=== PATIENT | female | born 1965 | race Caucasian/White ===

== ENCOUNTER 2016-12-28 14:40 | Emergency (ER) | payer MEDICARE, MEDICAID ==
--- NOTE | 2016-12-28 15:36 | ED Physician Chart ---
Chief Complaint/HPI - Patient Information Date Seen:: 12/28/16 Time Seen:: 15:31 Chief Complaint:: uti? History of Present Illness:: pt sent from [place] for rt flank pain and dysuria and u urgency and foul smelling urine. pt has poor mental fxning and cant corroborate this hx. she denies any pain at this time. says she feels ok. denies fever. pt seems poor historian...she denies a hx of cva but appears to have obv l side chronic weakness. Allergies:: Allergies Allergy/AdvReac Type Severity Reaction Status Date / Time No Known Allergies Allergy Verified 12/28/16 14:54 Vitals:: Vital Signs - 8 hr 12/28/16 14:55 Temp 98.4 F HR 84 RR 19 BP 130/86 O2 Sat % 96 Historian:: Patient Review of Systems - Review of Systems General/Constitutional: No fever, No chills, No weight loss, No weakness, No diaphoresis, No edema, No loss of appetite Skin: No skin lesions, No rash, No bruising Head: No headache, No light-headedness Eyes: No loss of vision, No pain, No diplopia ENT: No earache, No nasal drainage, No sore throat, No tinnitus Neck: No neck pain, No swelling, No thyromegaly, No stiffness, No mass noted Cardio Vascular: No chest pain, No palpitations, No PND, No orthopnea, No edema Pulmonary: No SOB, No cough, No sputum, No wheezing GI: No nausea, No vomiting, No diarrhea, No pain, No melena, No hematochezia, No constipation, No hematemesis G/U: Dysuria, Frequency, No hematuria Musculoskeletal: No bone or joint pain, No back pain, No muscle pain Endocrine: No polyuria, No polydipsia Psychiatric: No prior psych history, No depression, No anxiety, No suicidal ideation Hematopoietic: No bruising, No lymphadenopathy Allergic/Immuno: No urticaria, No angioedema Neurological: No syncope, No focal symptoms, No weakness, No paresthesia, No headache, No seizure, No dizziness, No confusion, No vertigo Past Medical History - Past Medical History Past Medical History: DM, Asthma/COPD, CVA/TIA, Seizures, Dementia, Other ( encephalopathy,) Social History: Care Facility Psychiatricy History: Bipolar, Dementia Medication: Reviewed Family Medical History - Family Member Mother History Unknown: Yes Ethnicity: Unknown Living Status: Unknown Hx Family Cancer: (unknown) Hx Family Coronary Artery Disease: (UNKNOWN) Hx Family Congestive Heart Failure: (UNKNOWN) Hx Family Hypertension: (UNKNOWN) Hx Family Stroke: (UNKNOWN) Hx Family Diabetes: (UNKNOWN) Hx Family Seizures: (UNKNOWN) Hx Family Dementia: (UNKNOWN) Hx Family AIDS: (UNKNOWN) Hx Family COPD: (UNKNOWN) Hx Family Hepatitis: (UNKNOWN) Hx Family Tuberculosis: (UNKNOWN) Physical Exam - Physical Examination General/Constitutional: Awake, Well-developed, well-nourished, Alert, No distress, Non-toxic appearing Other Gen/Cons comments:: poor historian Head: Atraumatic Eyes: Lids, conjuctiva normal, PERRL, EOMI Skin: Nl inspection, No rash, No skin lesions, No ecchymosis, Well hydrated, No lymphadenopathy ENMT: External ears, nose nl, Nasal exam nl, Lips, teeth, gums nl Neck: Nontender, Full ROM w/o pain, No JVD, No nuchal rigidity, No bruit, No mass, No stridor Respiratory: Nl effort/Exclusion, Clear to Auscultation, No Wheeze/Rhonchi/Rales Cardio Vascular: RRR, No murmur, gallop, rubs, NL S1 S2 GI: No tenderness/rebounding/guarding, No organomegaly, No hernia, Normal BS's, Nondistended, No mass/bruits, No McBurney tenderness : No CVA tenderness Extremities: No tenderness or effusion, Full ROM, normal strength in all extremities, No edema, Normal digits & nails Neuro/Psych: Alert/oriented, DTR's symmetric, Normal sensory exam, Judgement/ insight normal, Mood normal, No focal deficits Other Neuro/Psych comments:: weak l side w contracture of l arm and dec mobility. Misc: normal gait, Normal back, No paraspinal tenderness Labs/Radiology/EKG Results - Lab Results Results: Laboratory Tests 12/28/16 12/28/16 12/28/16 15:47 15:47 15:47 WBC 12.5 H D RBC 4.50 Hgb 14.5 Hct 41.3 MCV 91.9 MCH 32.2 H MCHC Differential 35.0 RDW 12.0 Plt Count 305 MPV 6.8 Neutrophils % 69.8 Lymphocytes % 21.9 Monocytes % 6.0 Eosinophils % 2.0 Basophils % 0.3 Sodium 130 L Potassium 3.9 Chloride 99 Carbon Dioxide 28.2 Anion Gap 6.7 L BUN 11 Creatinine 0.4 L Est GFR ( Amer) > 60.0 Est GFR (Non-Af Amer) > 60.0 BUN/Creatinine Ratio 27.5 Glucose 134 H Whole Bld Lactic Acid 1.29 Calcium 9.5 Total Bilirubin 0.2 L AST 12 L ALT 17 Alkaline Phosphatase 115 H Total Protein 7.6 Albumin 4.2 Globulin 3.4 Albumin/Globulin Ratio 1.2 Urine Source Urine Color Urine Clarity Urine pH Ur Specific [place] Urine Protein Urine Glucose (UA) Urine Ketones Urine Blood Urine Nitrate Urine Bilirubin Urine Urobilinogen Ur Leukocyte Esterase Urine RBC Urine WBC Ur Epithelial Cells Amorphous Sediment Urine Bacteria Urine Test 12/28/16 12/28/16 18:50 18:50 WBC RBC Hgb Hct MCV MCH MCHC Differential RDW Plt Count MPV Neutrophils % Lymphocytes % Monocytes % Eosinophils % Basophils % Sodium Potassium Chloride Carbon Dioxide Anion Gap BUN Creatinine Est GFR ( Amer) Est GFR (Non-Af Amer) BUN/Creatinine Ratio Glucose Whole Bld Lactic Acid Calcium Total Bilirubin AST ALT Alkaline Phosphatase Total Protein Albumin Globulin Albumin/Globulin Ratio Urine Source CLEAN C Urine Color STRAW Urine Clarity HAZY Urine pH 7.0 Ur Specific [place] 1.020 Urine Protein 0.020 Urine Glucose (UA) NEGATIVE Urine Ketones NEGATIVE Urine Blood TRACE Urine Nitrate POSITIVE H Urine Bilirubin NEGATIVE Urine Urobilinogen 0.2 Ur Leukocyte Esterase TRACE H Urine RBC 0-2 Urine WBC 2-5 Ur Epithelial Cells FEW Amorphous Sediment FEW PHOSPHATES Urine Bacteria FEW Urine Test NEGATIVE ED Septic Shock - . Is Septic Shock (SBP<90, OR Lactate>4 mmol\L) present?: No - <6hrs of presentation: Vital Signs: Vital Signs - 8 hr 12/28/16 14:55 Temp 98.4 F HR 84 RR 19 BP 130/86 O2 Sat % 96 Reassessment (Disposition) - Reassessment Reassessment:: case dw dr ugarte..says send [place] back to [place] on cipro mild uti can be txd there...he will call orders to there. - Diagnosis Diagnosis:: uti - Aftercare/Follow up Instructions Aftercare/Follow-Up Instructions:: Counseled pt regarding lab results/diagnosis & need follow up - Patient Disposition Discharge/Transfer:: Snf Care - SNF Condition at Disposition:: Improved
[2016-12-28 15:55] LABS: % BASOPHILS 0.3 % (0.0-2.0); % LYMPHOCYTES 21.9 % (20.0-50.0); % NEUTROPHILS 69.8 % (40.0-80.0); HEMATOCRIT 41.3 % (35.0-45.0); HEMOGLOBIN 14.5 gm/dL (11.7-15.5); MEAN CELL VOLUME 91.9 fl (81-100); MEAN CORPUSCULAR HEMOGLOBIN 32.2 pg (27.0-31.0); MEAN PLATELET VOLUME 6.8 fl; NEUTROPHILE ABSOLUTE 8.8 Th/cmm (1.8-8.0); PLATELET COUNT 305 Th/cmm (150-400)
[2016-12-28 16:06] LABS: WHITE BLOOD COUNT 12.5 Th/cmm (4.8-10.8)
[2016-12-28 16:12] LABS: ALB/GLOB RATIO 1.2 (1.0-1.8); ALKALINE PHOSPHATASE 115 U/L (34-104); ANION GAP 6.7 (7.0-16.0); BILIRUBIN,TOTAL 0.2 mg/dL (0.3-1.0); BUN - UREA NITROGEN 11 mg/dL (7-25); BUN/CREATININE RATIO 27.5; CALCIUM SERUM 9.5 mg/dL (8.6-10.3); CARBON DIOXIDE 28.2 mEq/L (21.0-31.0); CHLORIDE 99 mEq/L (98-107); CREATININE - SERUM 0.4 mg/dL (0.6-1.2); GLUCOSE 134 mg/dL (70-105); POTASSIUM SERUM 3.9 mEq/L (3.5-5.1); SGOT 12 U/L (13-39); SGPT/ALT 17 U/L (7-52); SODIUM SERUM 130 mEq/L (136-145)
[2016-12-28 19:50] LABS: URINE BILIRUBIN NEGATIVE (NEGATIVE); URINE COLOR STRAW; URINE GLUCOSE (UA) NEGATIVE (NEGATIVE); URINE KETONE NEGATIVE (NEGATIVE)
[2016-12-28 19:51] LABS: URINE BLOOD TRACE (NEGATIVE); URINE UROBILINOGEN 0.2 E.U./dL (0.2 - 1.0)
[2016-12-28 19:52] LABS: URINE AMORPHOUS SEDIMENT FEW PHOSPHATES (NONE SEEN); URINE BACTERIA FEW /hpf (NONE SEEN); URINE EPITHELIAL CELLS FEW /lpf (FEW); URINE RBC 0-2 /hpf (0-5)
== END 2016-12-28 22:29 ==
LOC: ER 14:40
DX: N39.0 Urinary tract infection, site not specified (principal); E11.9 Type 2 diabetes mellitus without complications; J44.9 Chronic obstructive pulmonary disease, unspecified; J45.909 Unspecified asthma, uncomplicated; F31.9 Bipolar disorder, unspecified; Z86.73 Personal history of transient ischemic attack (TIA), and cerebral infarction without residual deficits
CPT/HCPCS: 36415-UA; 80053-TC; 80156-TC; 81001-TC; 81025-TC; 83605; 85025-TC; Z7502; Z7610

== ENCOUNTER 2017-07-18 15:09 | Inpatient (IN) | payer MEDICARE, MEDICAID ==
--- NOTE | 2017-07-18 15:17 | ED Physician Chart ---
ED Chief Complaint/HPI - Patient Information Date Seen:: 07/18/17 Time Seen:: 15:05 Chief Complaint:: Agitation History of Present Illness:: onset x one day or agitation and aggressive behavior; no report of SIs, trauma, H/As, neck pain, C/P, SOB, Abd. Pain, A/N/V/D/C, fever, chills, or urinary s/s Allergies:: Allergies Allergy/AdvReac Type Severity Reaction Status Date / Time No Known Allergies Allergy Verified 12/28/16 14:54 Historian:: Patient, EMS Review:: Nurse's Note Reviewed, EMS run form Reviewed ED Review of Systems - Review of Systems General/Constitutional: No fever, No chills, No weight loss, No weakness, No diaphoresis, No edema, No loss of appetite Skin: No skin lesions, No rash, No bruising Head: No headache, No light-headedness Eyes: No loss of vision, No pain, No diplopia ENT: No earache, No nasal drainage, No sore throat, No tinnitus Neck: No neck pain, No swelling, No thyromegaly, No stiffness, No mass noted Cardio Vascular: No chest pain, No palpitations, No PND, No orthopnea, No edema Pulmonary: No SOB, No cough, No sputum, No wheezing GI: No nausea, No vomiting, No diarrhea, No pain, No melena, No hematochezia, No constipation, No hematemesis G/U: No dysuria, No frequency, No hematuria Musculoskeletal: No bone or joint pain, No back pain, No muscle pain Endocrine: No polyuria, No polydipsia Psychiatric: Prior psych history, Depression, Anxiety, No suicidal ideation, No homicidal ideation, No auditory hallucination, No visual hallucination Hematopoietic: No bruising, No lymphadenopathy Allergic/Immuno: No urticaria, No angioedema Neurological: No syncope, Focal symptoms, Weakness, No paresthesia, No headache , Seizure, No dizziness, Confusion, No vertigo ED Past Medical History - Past Medical History Obtainable: Yes Past Medical History: HTN, DM, CVA/TIA, Dyslipidemia, Seizures, Dementia Family History: Diabetes Melitus, HTN Social History: Non Smoker, No Alcohol, No Drug Use, Single, Care Facility Surgical History: None Psychiatricy History: Depression, Bipolar, Dementia Medication: Reviewed Family Medical History - Family Member Mother History Unknown: Yes Ethnicity: Unknown Living Status: Unknown Hx Family Cancer: (unknown) Hx Family Coronary Artery Disease: (UNKNOWN) Hx Family Congestive Heart Failure: (UNKNOWN) Hx Family Hypertension: (UNKNOWN) Hx Family Stroke: (UNKNOWN) Hx Family Diabetes: (UNKNOWN) Hx Family Seizures: (UNKNOWN) Hx Family Dementia: (UNKNOWN) Hx Family AIDS: (UNKNOWN) Hx Family COPD: (UNKNOWN) Hx Family Hepatitis: (UNKNOWN) Hx Family Tuberculosis: (UNKNOWN) ED Physical Exam - Physical Examination General/Constitutional: Awake, Well-developed, well-nourished, Alert, No distress, GCS 15, Non-toxic appearing, Ambulatory Head: Atraumatic Eyes: Lids, conjuctiva normal, PERRL, EOMI Skin: Nl inspection, No rash, No skin lesions, No ecchymosis, Well hydrated, No lymphadenopathy ENMT: External ears, nose nl, Nasal exam nl, Lips, teeth, gums nl Neck: Nontender, Full ROM w/o pain, No JVD, No nuchal rigidity, No bruit, No mass, No stridor Respiratory: Nl effort/Exclusion, Clear to Auscultation, No Wheeze/Rhonchi/Rales Cardio Vascular: RRR, No murmur, gallop, rubs, NL S1 S2, Carotid/Femoral/Distal pulses equal bilaterally GI: No tenderness/rebounding/guarding, No organomegaly, No hernia, Normal BS's, Nondistended, No mass/bruits, No McBurney tenderness : No CVA tenderness Extremities: No tenderness or effusion, Full ROM, normal strength in all extremities, No edema, Normal digits & nails Neuro/Psych: Alert/oriented, DTR's symmetric, Normal sensory exam, Normal motor strength, Judgement/insight normal, Mood normal, Normal gait Other Neuro/Psych comments:: LUE and LLE decreased motor and sensory functions 2ndary to old CVA; + Psychomotor Agitation; no SIs Misc: Normal back, No paraspinal tenderness ED Labs/Radiology/EKG Results - Lab Results Comments:: U/A: + Pyuria - EKG Interpretations EKG Time:: 15:32 Rate & Rhythm: 85; NSR Comments:: LAD; non-specific st-t changes ED Septic Shock - . Is Septic Shock (SBP<90, OR Lactate>4 mmol\L) present?: No ED Reassessment (Disposition) - Reassessment Reassessment Condition:: Improved - Diagnosis Diagnosis:: UTI; Agitation; Bipolar Disorder; Manic Depression; Old CVA - Aftercare/Follow up Instructions Aftercare/Follow-Up Instructions:: Counseled pt regarding lab results/diagnosis & need follow up, Counseled pt & family regarding lab results/diagnosis & need follow up - Patient Disposition Discharge/Transfer:: Acute Care w/in this hosp Admitted to:: [facility] Condition at Disposition:: Stable, Improved
[2017-07-18 15:50] LABS: % BASOPHILS 0.4 % (0.0-2.0); % EOSINOPHILS 1.9 % (0.0-5.0); % LYMPHOCYTES 28.1 % (20.0-50.0); % MONOCYTES 6.4 % (2.0-10.0); % NEUTROPHILS 63.2 % (40.0-80.0); EOSINOPHILE ABSOLUTE 0.2 Th/cmm (0.1-0.4); HEMATOCRIT 41.6 % (41.0-60); HEMOGLOBIN 13.9 gm/dL (12-16); LYMPHOCYTE ABSOLUTE 2.4 Th/cmm (1.5-3.0); MEAN CORPUSCULAR HEMOGLOBIN 31.1 pg (27.0-31.0); MEAN CORPUSCULAR HGB CONC 33.4 pg (28.0-36.0); MEAN PLATELET VOLUME 6.5 fl; MONOCYTE ABSOLUTE 0.5 Th/cmm (0.3-1.0); NEUTROPHILE ABSOLUTE 5.3 Th/cmm (1.8-8.0); PLATELET COUNT 344 Th/cmm (150-400); RED BLOOD COUNT 4.47 Mil/cmm (3.80-5.10); RED CELL DISTRIBUTION WIDTH 11.9 % (11.5-20.0)
[2017-07-18 15:58] LABS: WHITE BLOOD COUNT 8.4 Th/cmm (4.8-10.8)
[2017-07-18 16:07] LABS: ACETAMINOPHEN < 10.0 ug/mL (10.0-30.0); ALB/GLOB RATIO 1.4 (1.0-1.8); ALBUMIN 4.1 gm/dL (3.7-5.3); ALKALINE PHOSPHATASE 101 U/L (34-104); BILIRUBIN,TOTAL 0.2 mg/dL (0.3-1.0); BUN - UREA NITROGEN 12 mg/dL (7-25); CALCIUM SERUM 9.3 mg/dL (8.6-10.3); CARBON DIOXIDE 31.7 mEq/L (21.0-31.0); CHLORIDE 96 mEq/L (98-107); CHOLESTEROL 163 mg/dL (<200); CREATININE - SERUM 0.4 mg/dL (0.6-1.2); GFR AFRICAN-AMERICAN > 60.0 ml/min (>90); GFR NON AFRICAN-AMERICAN > 60.0 ml/min; GLUCOSE 118 mg/dL (70-105); HDL -HIGH DENSITY LIPOPROTEIN 47 mg/dL (23-92); POTASSIUM SERUM 3.7 mEq/L (3.5-5.1); SALICYLATES (ASPIRIN) < 25.0 mg/L (30.0-100.0); SGOT 14 U/L (13-39); SGPT/ALT 18 U/L (7-52); SODIUM SERUM 131 mEq/L (136-145); TOTAL PROTEIN,SERUM 7.1 gm/dL (6.0-8.3); TRIGLYCERIDES 150 mg/dL (<150)
[2017-07-18 16:07] LABS: URINE MICROSCOPIC INDICATED? YES; URINE SOURCE CLEAN C
[2017-07-18 16:09] LABS: URINE BILIRUBIN NEGATIVE (NEGATIVE); URINE BLOOD TRACE (NEGATIVE); URINE GLUCOSE (UA) NEGATIVE (NEGATIVE); URINE KETONE NEGATIVE (NEGATIVE); URINE LEUKOCYTE ESTERASE SMALL (NEGATIVE); URINE NITRATE POSITIVE (NEGATIVE); URINE PH 7.5 (4.6 - 8.0); URINE PROTEIN TRACE mg/dL (NEGATIVE); URINE UROBILINOGEN 0.2 E.U./dL (0.2 - 1.0)
[2017-07-18 16:13] LABS: URINE CLARITY HAZY (CLEAR); URINE COLOR YELLOW
[2017-07-18 16:15] LABS: URINE BACTERIA MANY /hpf (NONE SEEN); URINE EPITHELIAL CELLS FEW /lpf (FEW); URINE WBC 25-50 /hpf (0-5)
[2017-07-18 16:18] LABS: AMPHETAMINE URINE NEGATIVE (NEGATIVE); BARBITURATES URINE NEGATIVE (NEGATIVE); BENZODIAZEPINES QUAL URINE NEGATIVE (NEGATIVE); CANNABINOID THC NEGATIVE (NEGATIVE); COCAINE METABOLITE QUAL URINE NEGATIVE (NEGATIVE); METHADONE URINE NEGATIVE (NEGATIVE); METHAMPHETAMINES QUAL URINE NEGATIVE (NEGATIVE); OPIATES (MORPHINE) QUAL. URINE NEGATIVE (NEGATIVE); PHENCYCLIDINE (PCP) URINE NEGATIVE (NEGATIVE); TRICYCLICS (TCA) QUAL. URINE NEGATIVE (NEGATIVE)
[2017-07-18] MEDS ORDERED: GLUCAGON HCl 1 MG KIT SUBQ PRN (20:04)
[2017-07-18] MEDS: Fish Oil 1,000 MG SGL PO SCH (20:56)
[2017-07-18 23:32] VITALS: BP 115/68
[2017-07-19] MEDS ORDERED: INSULIN ASPART SLIDING SCALE 100 UNITS/ML UNIT SUBQ SCH ×2 (07:30)
[2017-07-19] MEDS: Dextromethorphan/Quinidine 20mg/10mg Cap PO SCH ×2 (08:28→16:39)
[2017-07-19] MEDS: Fish Oil 1,000 MG SGL PO SCH ×3 (08:28→22:13)
[2017-07-19] MEDS: Benztropine 1 MG TAB PO SCH ×2 (08:28→16:40)
[2017-07-19] MEDS: Aspirin 81mg Chewable Tab PO SCH (08:28)
[2017-07-19] MEDS ORDERED: GLUCAGON HCl 1 MG KIT IM PRN (09:16)
[2017-07-19] MEDS ORDERED: Magnesium Hydroxide (MOM) 30 mL UDC PO PRN (09:16)
[2017-07-19] MEDS ORDERED: Maalox 30 mL Cup PO PRN (09:16)
[2017-07-19] MEDS ORDERED: Dextromethorphan/Quinidine 20mg/10mg Cap PO SCH (09:30)
[2017-07-19] MEDS ORDERED: Aspirin 81mg Chewable Tab PO SCH (09:30)
[2017-07-19] MEDS ORDERED: Benztropine 1 MG TAB PO SCH (09:30)
[2017-07-19] MEDS ORDERED: UBIDECARENONE 200 MG PO SCH (09:30)
[2017-07-19] MEDS ORDERED: Fish Oil 1,000 MG SGL PO SCH (09:30)
[2017-07-19 10:00] LABS: A1C % 6.1 % (4.0-6.0)
[2017-07-19] MEDS: Pancrelipase Cap ECC PO SCH ×2 (14:03→16:42)
--- NOTE | 2017-07-19 14:48 | Psychosocial Evaluation ---
DATE OF SERVICE: 07/18/2017 IDENTIFYING DATA: The patient is a 51-year-old woman, resident of [facility]. Information obtained by directly interviewing the patient as well as reviewing admission papers and they are reliable. JUSTIFICATION OF HOSPITALIZATION: The patient is admitted here on a voluntary basis in view of her acute psychosis. CHIEF COMPLAINT: "I don't know." HISTORY OF PRESENT ILLNESS: This seems to be one of multiple psychiatric hospitalizations for this patient who was last hospitalized here in 2013. The patient has been diagnosed to have bipolar disorder and is being followed up by Dr. Troncoso on an outpatient basis. On the day of the hospitalization, the patient has been getting easily agitated and is not able to contract for safety. The patient is also reported to be confused and agitated and responding to internal stimuli and hence the patient has been referred over here for stabilization. PAST PSYCHIATRIC HISTORY: Please refer to the above. The patient was hospitalized and was treated for depression and dementia in the past. MEDICAL HISTORY: requested to be done by Dr. Chappell. The patient has a history of seizure disorder and left-sided CVA. SUBSTANCE ABUSE HISTORY: None. PHYSICAL OR SEXUAL ABUSE HISTORY: None. SOCIAL HISTORY: The patient is a resident of the [facility]. MENTAL STATUS EXAMINATION: The patient is a 51-year-old woman looking her stated age, superficially cooperative. Eye contact is poor. Mood is noted to be irritable. Affect is constricted. The patient's coping skills are noted to be poor at this time. Insight and judgment are also noted to be very much impaired. The patient has been screaming and yelling and articulation problems are noted. At the time of the hospitalization. The patient has been on benztropine 1 mg b.i.d., carbamazepine 200 mg 4 times a day and the patient is also receiving the Klonopin 1 mg 3 times a day and the patient has been getting the haloperidol 10 mg twice a day. With these medications. The patient for now, is going to be observed and once stabilized, the patient is going to be discharged back to the facility for stabilization. JOB# [id number]
[2017-07-19] MEDS ORDERED: Non-Formulary Item 1 EA (Melatonin [Melatonin] 6 MG) PO SCH (21:00)
[2017-07-20] MEDS: INSULIN ASPART SLIDING SCALE 100 UNITS/ML UNIT SUBQ SCH (07:12)
[2017-07-20] MEDS: Aspirin 81mg Chewable Tab PO SCH (08:20)
[2017-07-20] MEDS: Benztropine 1 MG TAB PO SCH ×2 (08:20→16:41)
[2017-07-20] MEDS: Dextromethorphan/Quinidine 20mg/10mg Cap PO SCH ×2 (08:20→16:40)
[2017-07-20] MEDS: Fish Oil 1,000 MG SGL PO SCH ×3 (08:22→20:43)
[2017-07-20] MEDS: Pancrelipase Cap ECC PO SCH ×3 (08:23→16:40)
--- NOTE | 2017-07-20 10:55 | Progress Notes ---
DATE: 07/20/2017 PSYCHIATRIC PROGRESS NOTE SUBJECTIVE: Staff was spoken to. The patient is interviewed. Mood is noted to be irritable. Affect is constricted. The patient is isolative and withdrawn. Coping skills are noted to be poor at this time. The patient is still depressed and has been having difficult time to cope with the stress. ASSESSMENT: The patient is still depressed. PLAN: To continue the patient with the supportive therapy, encouraged the patient to verbalize the concerns rather than to act out. [facility]# [id number]
--- NOTE | 2017-07-20 11:17 | History & Physical ---
ADMIT DATE: 07/19/2017 REFERRING PHYSICIAN: Leana Troncoso M.D REASON FOR CONSULT: Medical management, history of diabetes, pancreatic insufficiency, seizure disorder, UTI, and hyperlipidemia. HISTORY OF PRESENT ILLNESS: The patient is a 51-year-old female who was transferred from a detention facility secondary to agitation and psych decompensation. She has a history of CVA with left-sided hemiparesis and left-sided upper extremity contractions, seizure disorder, depression, anxiety, type 2 diabetes, and dyslipidemia who again was transferred to this facility given psych decompensation. She is an extremely poor historian, but is awake and able to tell me that she has had no major symptomatology such as fever, chills, cough, nausea, vomiting. PAST MEDICAL HISTORY: As noted above. PAST SURGICAL HISTORY: No noted surgeries, but there is scar in the mid anterior neck area. SOCIAL HISTORY: Denies any tobacco, ETOH or illicit drug usage. She lives at a detention facility. FAMILY HISTORY: Likely noncontributory. ALLERGIES: NKDA. OUTPATIENT MEDICATIONS: Maalox p.r.n., pancreatic enzymes t.i.d., aspirin 81 every day, benztropine 1 mg b.i.d., carbamazepine 200mg q.i.d. and clonazepam 1mg t.i.d., docusate sodium 100 b.i.d., fish oil every day, glipizide 5 every day with meals, insulin sliding scale, Haldol 10 b.i.d., insulin sliding scale per protocol, simvastatin 20 at bedtime. REVIEW OF SYSTEMS: A good review of systems was not able to be done given patient's condition. PHYSICAL EXAMINATION: VITAL SIGNS: Temperature 98.6, pulse 62, respirations 18, BP 1114/72, satting 96% on room air. GENERAL: Well-developed, well-nourished female, currently lying in bed, lethargic appearing and slow to answer questions. HEAD AND NECK: Normocephalic, atraumatic. Pupils are reactive to light. Extraocular movements are intact. Oropharynx is moist and clear. NECK: There is no JVD or LAD. There is a well-healed scar on the mid neck area. CARDIOVASCULAR: Regular rate and rhythm with distant sounds. LUNGS: Decreased at the bases, but overall clear to auscultation. ABDOMEN: Soft, supple, nontender, nondistended, normoactive bowel sounds. EXTREMITIES: On lower extremity, there is trace pedal edema. NEUROLOGIC: Difficult to assess. The cranial nerves 2-12 are within normal limits. LABORATORY DATA: White count 8.4, H and H 13/41 with a platelet count 344. Sodium 131, potassium 3.7, chloride 96, CO2 of 31, BUN 12, creatinine 0.4, glucose 118. LFTs were essentially within normal limits. UA was positive for nitrites with small leukocyte esterase, 25-50 wbc's. Urine tox was essentially within normal limits. DIAGNOSTIC STUDIES: EKG shows normal sinus rhythm at a rate of 85. IMPRESSION AND PLAN: 1. Acute psych decompensation. 2. History of CVA with left-sided hemiparesis 3. History of type 2 diabetes. 4. History of seizure disorder. 5. UTI. 6. History of pancreatic insufficiency. 7. History of dyslipidemia. PLAN: The patient has been [facility] to [facility] for further management and care. She will be kept on all her medications as schedule. We will follow urine cultures and sensitivities in the interim. She has received 1 gram of Rocephin at the ER and she will be placed on ciprofloxacin 250 b.i.d. x7 days. JOB# [id number] CEDRIC
[2017-07-20] MEDS ORDERED: Probiotic Screen MC PRN (14:30)
[2017-07-21] MEDS: INSULIN ASPART SLIDING SCALE 100 UNITS/ML UNIT SUBQ SCH (06:52)
[2017-07-21] MEDS: Fish Oil 1,000 MG SGL PO SCH ×3 (08:08→21:01)
[2017-07-21] MEDS: Dextromethorphan/Quinidine 20mg/10mg Cap PO SCH ×2 (08:08→17:25)
[2017-07-21] MEDS: Aspirin 81mg Chewable Tab PO SCH (08:08)
[2017-07-21] MEDS: Lactobacillus Rhamnosus 10 Billion CFU Capsule PO SCH (08:08)
[2017-07-21] MEDS: Benztropine 1 MG TAB PO SCH ×2 (08:08→17:25)
[2017-07-21] MEDS: Pancrelipase Cap ECC PO SCH ×3 (08:10→17:25)
--- NOTE | 2017-07-21 22:11 | Progress Notes ---
DATE: 07/21/2017 PSYCHIATRIC PROGRESS NOTE SUBJECTIVE: Staff was spoken to. Patient is interviewed. Mood is irritable. Affect is constricted. Coping skills are noted to be still poor. Sleep and appetite are also noted to be very poor. Mood swings are noted. The patient is screaming and yelling at times, but needs to be redirected. The patient is currently on haloperidol 10 mg twice a day and the patient is too drowsy and hence we decided to change the haloperidol to 5 mg twice a day and follow the patient with the supportive therapy. ASSESSMENT: The patient is still psychotic and impulsive. PLAN: To continue the patient with supportive therapy. I encouraged the patient to verbalize the concerns rather than to act out. [facility]# [id number]
[2017-07-22] MEDS: INSULIN ASPART SLIDING SCALE 100 UNITS/ML UNIT SUBQ SCH (06:53)
[2017-07-22] MEDS: Pancrelipase Cap ECC PO SCH ×3 (09:00→17:24)
[2017-07-22] MEDS: Lactobacillus Rhamnosus 10 Billion CFU Capsule PO SCH (10:00)
[2017-07-22] MEDS: Benztropine 1 MG TAB PO SCH ×2 (10:00→17:22)
[2017-07-22] MEDS: Aspirin 81mg Chewable Tab PO SCH (10:00)
[2017-07-22] MEDS: Dextromethorphan/Quinidine 20mg/10mg Cap PO SCH ×2 (10:00→17:22)
[2017-07-22] MEDS: Fish Oil 1,000 MG SGL PO SCH ×3 (10:00→21:02)
--- NOTE | 2017-07-22 18:42 | Progress Notes ---
DATE: 07/22/2017 PSYCHIATRIC PROGRESS NOTE SUBJECTIVE: Staff was spoken to. The patient is interviewed. Mood is noted to be irritable. Affect is constricted. Coping skills are noted to be very poor. Insight and judgment are also noted to be very poor. The patient is isolative and withdrawn. Since the patient has been too drowsy, the patient's haloperidol has been discontinued at 10 mg twice a day and the patient is only on 5 mg twice a day. The patient has been able to tolerate the medications. No side effects to the medications are noted. ASSESSMENT: The patient is still having difficult time to cope with the stress. PLAN: To continue the patient with the supportive therapy and encouraged the patient to verbalize the concerns rather than to act out. The patient's Klonopin is going to be changed to 0.5 mg 3 times a day because the patient has been presenting with too much of sedation. JOB# [id number]
[2017-07-23] MEDS: INSULIN ASPART SLIDING SCALE 100 UNITS/ML UNIT SUBQ SCH (07:48)
[2017-07-23] MEDS: Dextromethorphan/Quinidine 20mg/10mg Cap PO SCH ×2 (09:12→17:42)
[2017-07-23] MEDS: Benztropine 1 MG TAB PO SCH ×2 (09:12→17:42)
[2017-07-23] MEDS: Fish Oil 1,000 MG SGL PO SCH ×3 (09:12→22:43)
[2017-07-23] MEDS: Pancrelipase Cap ECC PO SCH ×3 (09:12→17:46)
[2017-07-23] MEDS: Aspirin 81mg Chewable Tab PO SCH (09:13)
[2017-07-23] MEDS: Lactobacillus Rhamnosus 10 Billion CFU Capsule PO SCH (09:14)
--- NOTE | 2017-07-23 19:43 | Progress Notes ---
DATE: 07/23/2017 SUBJECTIVE: Staff was spoken to. The patient is interviewed. Mood is noted to be depressed. Affect is constricted. The patient has been isolative and withdrawn. The patient is still responding to internal stimuli. Insight and judgment at this time are noted to be still impaired. Impulse control is poor. Coping skills are noted to very poor. No side effects to the medications are noted. The patient has been closely monitored at this time. The patient is having difficult time to cope with the stress. ASSESSMENT: The patient is still grossly psychotic. PLAN: To continue the patient with the supportive therapy, encouraged the patient to verbalize the concerns rather than to act out. Please note that the patient is not ready to be discharged to a lower level of care yet. JOB# [id number]
--- NOTE | 2017-07-23 19:43 | Progress Notes ---
DATE: 07/23/2017 PSYCHIATRIC PROGRESS NOTE SUBJECTIVE: Staff was spoken to. The patient is interviewed. Mood is noted to be less irritable. Affect is constricted. The patient's coping skills are noted to be still poor. The patient has been currently on 5 mg twice of the haloperidol. Plan to decrease the dose to only once at bedtime and discontinue the patient's twice a day of the Haldol because the patient has been very drowsy even with 5 mg twice a day. The patient was on 10 mg, so we are trying to cut down on the dose on the medication. ASSESSMENT: The patient is still psychotic. PLAN: To continue the patient with the supportive therapy and followup. [facility]# [id number]
[2017-07-24] MEDS: INSULIN ASPART SLIDING SCALE 100 UNITS/ML UNIT SUBQ SCH (07:03)
[2017-07-24] MEDS: Dextromethorphan/Quinidine 20mg/10mg Cap PO SCH ×2 (08:14→18:31)
[2017-07-24] MEDS: Pancrelipase Cap ECC PO SCH ×3 (08:14→18:31)
[2017-07-24] MEDS: Aspirin 81mg Chewable Tab PO SCH (08:14)
[2017-07-24] MEDS: Lactobacillus Rhamnosus 10 Billion CFU Capsule PO SCH (08:14)
[2017-07-24] MEDS: Fish Oil 1,000 MG SGL PO SCH ×3 (08:15→20:45)
[2017-07-24] MEDS: Benztropine 1 MG TAB PO SCH ×2 (08:15→18:32)
--- NOTE | 2017-07-25 03:06 | Progress Notes ---
DATE: 07/24/2017 SUBJECTIVE: Staff was spoken to. Patient is interviewed. Mood is irritable. Affect is constricted. The patient has been screaming and yelling and the patient has to be given Ativan 1 mg IM. Coping skills at this time are noted to be very poor. The patient has been currently on 5 mg of the Haldol at bedtime. No side effects to the medications are noted. ASSESSMENT: The patient is also on carbamazepine 200 mg 4 times a day. Plan to request the patient to verbalize the concerns rather than to act out. The patient is going to be followed up with her level on the Tegretol. JOB# [id number]
[2017-07-25] MEDS: INSULIN ASPART SLIDING SCALE 100 UNITS/ML UNIT SUBQ SCH (06:38)
[2017-07-25] MEDS: Pancrelipase Cap ECC PO SCH ×3 (08:53→18:15)
[2017-07-25] MEDS: Fish Oil 1,000 MG SGL PO SCH ×3 (08:53→21:26)
[2017-07-25] MEDS: Dextromethorphan/Quinidine 20mg/10mg Cap PO SCH ×2 (08:53→18:06)
[2017-07-25] MEDS: Aspirin 81mg Chewable Tab PO SCH (08:53)
[2017-07-25] MEDS: Benztropine 1 MG TAB PO SCH ×2 (08:53→18:06)
[2017-07-25] MEDS: Lactobacillus Rhamnosus 10 Billion CFU Capsule PO SCH (08:53)
[2017-07-25] MEDS ORDERED: Haloperidol Lactate 5 mg/mL 1mL Vial IM ONE (15:09)
[2017-07-26] MEDS: INSULIN ASPART SLIDING SCALE 100 UNITS/ML UNIT SUBQ SCH (06:50)
--- NOTE | 2017-07-26 07:01 | Progress Notes ---
DATE: 07/25/2017 PSYCHIATRIC PROGRESS NOTE SUBJECTIVE: Staff was spoken to. The patient is interviewed. Mood is noted to be irritable. Affect is constricted. The patient has been going off on a tangent. The patient could not be contained. The patient has to be given an emergency dose of medications. Coping skills at this time are noted to be very poor. ASSESSMENT: The patient is still psychotic. PLAN: To continue the patient with the supportive therapy. I encouraged the patient to verbalize the concerns rather than to act out. JOB# [id number]
[2017-07-26] MEDS: Benztropine 1 MG TAB PO SCH ×2 (08:56→16:22)
[2017-07-26] MEDS: Fish Oil 1,000 MG SGL PO SCH ×3 (08:57→21:50)
[2017-07-26] MEDS: Dextromethorphan/Quinidine 20mg/10mg Cap PO SCH ×2 (08:57→16:22)
[2017-07-26] MEDS: Aspirin 81mg Chewable Tab PO SCH (08:57)
[2017-07-26] MEDS: Lactobacillus Rhamnosus 10 Billion CFU Capsule PO SCH (08:57)
[2017-07-26] MEDS: Pancrelipase Cap ECC PO SCH ×3 (08:58→16:22)
--- NOTE | 2017-07-26 23:25 | Progress Notes ---
DATE: 07/26/2017 Staff was spoken to. The patient is interviewed. Mood is noted to be irritable. Affect is constricted. The patient is screaming and yelling and she does not get her way. The patient has been currently on 5 mg of Haldol at bedtime and has been able to tolerate the medications. No side effects to medications are noted. ASSESSMENT: The patient is still psychotic and impulsive. PLAN: To continue the patient with the current medications and followup. JOB# [id number]
[2017-07-27] MEDS: INSULIN ASPART SLIDING SCALE 100 UNITS/ML UNIT SUBQ SCH (07:07)
[2017-07-27] MEDS: Pancrelipase Cap ECC PO SCH ×2 (09:58→13:00)
[2017-07-27] MEDS: Benztropine 1 MG TAB PO SCH ×2 (09:58→18:03)
[2017-07-27] MEDS: Aspirin 81mg Chewable Tab PO SCH (09:58)
[2017-07-27] MEDS: Fish Oil 1,000 MG SGL PO SCH ×3 (09:58→21:43)
[2017-07-27] MEDS: Dextromethorphan/Quinidine 20mg/10mg Cap PO SCH ×2 (09:58→18:04)
[2017-07-27] MEDS: Lactobacillus Rhamnosus 10 Billion CFU Capsule PO SCH (09:59)
[2017-07-27] MEDS: PANCREAZE PO SCH (18:15)
--- NOTE | 2017-07-28 00:56 | Progress Notes ---
DATE: 07/27/2017 SUBJECTIVE: Staff was spoken to. The patient is interviewed. Mood is noted to be irritable. Affect is constricted. The patient's coping skills are noted to be very poor. Sleep and appetite also noted to be very poor. No side effects to the medications are noted. The patient has been having difficult time to cope with the stress. The patient is currently on Haldol and has been able to tolerate the medications. No side effects to the medications are noted. ASSESSMENT: The patient is still psychotic. PLAN: Continue the patient with the current medications and follow up. [facility]# [id number]
[2017-07-28] MEDS: INSULIN ASPART SLIDING SCALE 100 UNITS/ML UNIT SUBQ SCH (07:00)
[2017-07-28] MEDS: PANCREAZE PO SCH ×3 (09:00→17:39)
[2017-07-28] MEDS: Aspirin 81mg Chewable Tab PO SCH (09:54)
[2017-07-28] MEDS: Lactobacillus Rhamnosus 10 Billion CFU Capsule PO SCH (09:54)
[2017-07-28] MEDS: Dextromethorphan/Quinidine 20mg/10mg Cap PO SCH ×2 (09:54→17:38)
[2017-07-28] MEDS: Fish Oil 1,000 MG SGL PO SCH ×3 (09:55→21:08)
[2017-07-28] MEDS: Benztropine 1 MG TAB PO SCH ×2 (09:55→17:38)
--- NOTE | 2017-07-29 02:05 | Progress Notes ---
DATE: 07/28/2017 PSYCHIATRIC PROGRESS NOTE SUBJECTIVE: Staff was spoken to. The patient is interviewed. Mood is noted to be irritable. The patient has been reported to be screaming and yelling earlier this morning, but today, this afternoon, the patient has been doing okay. The patient is currently on 5 mg of the Haldol at night time and has been able to tolerate the medication. No side effects to the medications are noted. ASSESSMENT: The patient is still psychotic and mood swings are coming under control. PLAN: To continue the patient with the supportive therapy, encouraged the patient to verbalize the concerns rather than to act out. JOB# [id number]
[2017-07-29] MEDS: INSULIN ASPART SLIDING SCALE 100 UNITS/ML UNIT SUBQ SCH (06:40)
[2017-07-29] MEDS: Dextromethorphan/Quinidine 20mg/10mg Cap PO SCH ×2 (09:15→16:31)
[2017-07-29] MEDS: Lactobacillus Rhamnosus 10 Billion CFU Capsule PO SCH (09:15)
[2017-07-29] MEDS: Benztropine 1 MG TAB PO SCH ×2 (09:15→16:31)
[2017-07-29] MEDS: Aspirin 81mg Chewable Tab PO SCH (09:16)
[2017-07-29] MEDS: Fish Oil 1,000 MG SGL PO SCH ×3 (09:16→21:24)
[2017-07-29] MEDS: PANCREAZE PO SCH ×3 (09:20→16:34)
--- NOTE | 2017-07-29 14:08 | Progress Notes ---
DATE: 07/29/2017 SUBJECTIVE: Staff was spoken to. The patient is interviewed. Mood is noted to be anxious and depressed. Affect is constricted. Insight and judgment are noted to be improving. Impulse control seems to be fair. The patient is not yelling or screaming like before. No side effects to the medications are noted. The patient has been able to verbalize the concerns rather than to act out. The patient is currently on the carbamazepine 200 mg 4 times a day and the patient is also receiving Haldol 5 mg at bedtime and has been able to tolerate. ASSESSMENT: The patient's mood swings are coming under control. PLAN: To continue the patient with the supportive therapy, encouraged the patient to verbalize the concerns rather than to act out. JOB# [id number]
[2017-07-30] MEDS: INSULIN ASPART SLIDING SCALE 100 UNITS/ML UNIT SUBQ SCH (06:53)
[2017-07-30] MEDS: Aspirin 81mg Chewable Tab PO SCH (09:19)
[2017-07-30] MEDS: Lactobacillus Rhamnosus 10 Billion CFU Capsule PO SCH (09:19)
[2017-07-30] MEDS: PANCREAZE PO SCH ×3 (09:19→16:39)
[2017-07-30] MEDS: Fish Oil 1,000 MG SGL PO SCH ×2 (09:20→13:16)
[2017-07-30] MEDS: Benztropine 1 MG TAB PO SCH ×2 (09:20→16:37)
[2017-07-30] MEDS: Dextromethorphan/Quinidine 20mg/10mg Cap PO SCH ×2 (09:20→16:38)
--- NOTE | 2017-07-30 19:26 | Progress Notes ---
DATE: 07/30/2017 SUBJECTIVE: Staff was spoken to. The patient is interviewed. Mood is noted to be less irritable. Affect is appropriate. Coping skills at this time are noted to be fair. No side effects to the medications are noted. The patient has been less anxious at this time. The patient's psychosis is resolving. Impulse control is also noted to be improving, but the patient is stating that the medication is making her too drowsy and hence the Klonopin has been changed to 0.5 mg t.i.d. p.r.n. The patient is also getting the Haldol 5 mg at bedtime and has been able to tolerate. Psychosis is resolving. ASSESSMENT: The patient is stabilizing. PLAN: To continue the patient with the supportive therapy. I encouraged the patient to verbalize the concerns rather than to act out. JOB# [id number]
[2017-07-31] MEDS: Dextromethorphan/Quinidine 20mg/10mg Cap PO SCH ×2 (09:47→17:09)
[2017-07-31] MEDS: Aspirin 81mg Chewable Tab PO SCH (09:47)
[2017-07-31] MEDS: Lactobacillus Rhamnosus 10 Billion CFU Capsule PO SCH (09:47)
[2017-07-31] MEDS: Benztropine 1 MG TAB PO SCH ×2 (09:47→17:10)
[2017-07-31] MEDS: Fish Oil 1,000 MG SGL PO SCH ×3 (09:48→21:03)
[2017-07-31] MEDS: INSULIN ASPART SLIDING SCALE 100 UNITS/ML UNIT SUBQ SCH (09:48)
[2017-07-31] MEDS: PANCREAZE PO SCH ×3 (09:49→17:11)
--- NOTE | 2017-07-31 19:03 | Progress Notes ---
DATE: 07/31/2017 SUBJECTIVE: Staff was spoken to. The patient is interviewed. Mood is noted to be less irritable. Affect is appropriate. The patient's coping skills are noted to be improving; however, the patient has paranoia and gets into agitation whenever she does not get her way. No side effects to the medications are noted so far. The patient is currently on carbamazepine 200 mg 4 times a day and benztropine 1 mg twice a day. Also, the patient is getting the Klonopin on p.r.n. doses of medication. The patient is going to be closely monitored and encouraged to participate in the groups and verbalize the concerns rather than to act out. ASSESSMENT: The patient's case management assistant is going to be kept in the loop and the discharge plan is going to be discussed. JOB# [id number]
[2017-08-01] MEDS: INSULIN ASPART SLIDING SCALE 100 UNITS/ML UNIT SUBQ SCH (06:31)
[2017-08-01] MEDS: PANCREAZE PO SCH ×3 (08:30→16:46)
[2017-08-01] MEDS: Dextromethorphan/Quinidine 20mg/10mg Cap PO SCH ×2 (09:39→16:44)
[2017-08-01] MEDS: Fish Oil 1,000 MG SGL PO SCH ×3 (09:39→20:23)
[2017-08-01] MEDS: Lactobacillus Rhamnosus 10 Billion CFU Capsule PO SCH (09:39)
[2017-08-01] MEDS: Benztropine 1 MG TAB PO SCH ×2 (09:40→16:45)
[2017-08-01] MEDS: Aspirin 81mg Chewable Tab PO SCH (09:40)
--- NOTE | 2017-08-01 16:02 | Progress Notes ---
DATE: 08/01/2017 SUBJECTIVE: Staff was spoken to. The patient is interviewed. Mood is noted to be irritable. Affect is constricted. Impulsivity is still contained is a problem. The patient has been on the carbamazepine, the level is noted to be 9.0 and the patient is being closely monitored at this time for any adverse effects. The patient is also having the irritability and anger. The patient is maintained on Haldol 5 mg at bedtime. ASSESSMENT: The patient is still impulsive. PLAN: To continue the patient with the supportive therapy, encouraged the patient to verbalize the concerns rather than to act out. JOB# [id number]
[2017-08-02] MEDS: INSULIN ASPART SLIDING SCALE 100 UNITS/ML UNIT SUBQ SCH (06:32)
[2017-08-02] MEDS: PANCREAZE PO SCH ×3 (09:00→17:14)
[2017-08-02] MEDS: Benztropine 1 MG TAB PO SCH ×2 (10:00→17:13)
[2017-08-02] MEDS: Lactobacillus Rhamnosus 10 Billion CFU Capsule PO SCH (10:00)
[2017-08-02] MEDS: Dextromethorphan/Quinidine 20mg/10mg Cap PO SCH ×2 (10:00→17:14)
[2017-08-02] MEDS: Aspirin 81mg Chewable Tab PO SCH (10:00)
[2017-08-02] MEDS: Fish Oil 1,000 MG SGL PO SCH ×3 (10:00→21:35)
--- NOTE | 2017-08-02 20:52 | Progress Notes ---
DATE: 08/02/2017 SUBJECTIVE: Staff was spoken to. The patient is interviewed. Mood is noted to be irritable. Affect is constricted. The patient has been complaining that no one is listening to her and the patient tends to scream. The patient has paranoid delusions, but denies any command hallucinations today. No side effects to the medications are noted. However, the patient's coping skills are noted to be very poor. The patient has been in the bed most of the time. ASSESSMENT: The patient is still impulsive. PLAN: To continue the patient with the current medications. I encouraged the patient to verbalize the concerns rather than to act out. JOB# [id number]
[2017-08-03] MEDS: INSULIN ASPART SLIDING SCALE 100 UNITS/ML UNIT SUBQ SCH (06:47)
[2017-08-03] MEDS ORDERED: Lactobacillus Rhamnosus GG 15 Billion CFU CAP.SPRINK PO SCH (09:00)
[2017-08-03] MEDS: PANCREAZE PO SCH ×3 (10:16→16:50)
[2017-08-03] MEDS: Fish Oil 1,000 MG SGL PO SCH ×2 (10:16→14:02)
[2017-08-03] MEDS: Benztropine 1 MG TAB PO SCH ×2 (10:16→16:49)
[2017-08-03] MEDS: Aspirin 81mg Chewable Tab PO SCH (10:16)
[2017-08-03] MEDS: Dextromethorphan/Quinidine 20mg/10mg Cap PO SCH ×2 (10:16→16:49)
--- NOTE | 2017-08-03 10:33 | Progress Notes ---
DATE: 08/03/2017 PSYCHIATRIC PROGRESS NOTE SUBJECTIVE: Staff was spoken to. The patient is interviewed. Mood is noted to be anxious. The patient's insight and judgment at this time are noted to be still impaired. Impulse control seems to be limited. Coping skills are noted to be limited. The patient, however, has been stating that she has been able to sleep well. Appetite is improving. No aggressive behavior is reported. senior architect/design manager has been requested to contact the facility to see if the patient can be discharged for followup on outpatient basis. JOB# [id number]
== END 2017-08-03 17:20 | disposition home or self-care (01) | DRG 885 ==
LOC: ER 15:09 → GERO 16:45
DX: F23 Brief psychotic disorder (principal); F03.91 Unspecified dementia, unspecified severity, with behavioral disturbance; I69.354 Hemiplegia and hemiparesis following cerebral infarction affecting left non-dominant side; N39.0 Urinary tract infection, site not specified; E11.9 Type 2 diabetes mellitus without complications; G40.909 Epilepsy, unspecified, not intractable, without status epilepticus; E78.5 Hyperlipidemia, unspecified; I10 Essential (primary) hypertension; R45.87 Impulsiveness; F31.9 Bipolar disorder, unspecified; F41.9 Anxiety disorder, unspecified; Z83.3 Family history of diabetes mellitus; Z82.49 Family history of ischemic heart disease and other diseases of the circulatory system; Z79.82 Long term (current) use of aspirin; Z79.4 Long term (current) use of insulin; Z79.899 Other long term (current) drug therapy
CPT/HCPCS: 36415-UA; 80053-TC; 80061-TC; 80156-TC; 80307; 80320-TC; 80329-TC; 81001-TC; 82948-90; 83036-90; 84443-TC; 84703-TC; 85025-TC; 86592-TC; 87086-90; 93005; J0696; J1200; J1630; J1815; J2060; Z7610

== ENCOUNTER 2018-01-23 20:40 | Inpatient (IN) | payer MEDICARE, MEDICAID ==
--- NOTE | 2018-01-23 21:23 | ED Physician Chart ---
ED Chief Complaint/HPI - Patient Information Date Seen:: 01/23/18 Time Seen:: 21:23 Chief Complaint:: Cough, congestion and generalized weakness History of Present Illness:: 52 yo female was brought from [facility] to ER due to cough, congestion and generalized weakness for 3 days. During workup in ER, a CXR showed gas pattern and elevated right sided diaphragm. A follow up CT abdomen revealed gallstones, mild ileus and rectal wall thickening indicating possible proctitis. Allergies:: Allergies Allergy/AdvReac Type Severity Reaction Status Date / Time No Known Allergies Allergy Verified 07/18/17 15:22 Vitals:: Vital Signs - 8 hr 01/23/18 20:50 Temp 97.2 F HR 82 RR 16 BP 111/69 O2 Sat % 92 ED Review of Systems - Review of Systems General/Constitutional: No fever Skin: No skin lesions Head: No headache Eyes: No pain ENT: No nasal drainage Neck: No neck pain Cardio Vascular: No chest pain Pulmonary: Cough, Sputum GI: No nausea, No vomiting Musculoskeletal: No back pain Neurological: Weakness, Seizure ED Past Medical History - Past Medical History Past Medical History: DM, Asthma/COPD, Dyslipidemia, PUD/GERD, Seizures, Other ( Encephalopathy, Kidney infarction) Social History: Non Smoker, No Alcohol, No Drug Use Family Medical History - Family Member Mother History Unknown: Yes Ethnicity: Unknown Living Status: Unknown Hx Family Cancer: (unknown) Hx Family Coronary Artery Disease: (unknown) Hx Family Congestive Heart Failure: (unknown) Hx Family Hypertension: (unknown) Hx Family Stroke: (unknown) Hx Family Diabetes: (unknown) Hx Family Seizures: (unknown) Hx Family Dementia: (unknown) Hx Family AIDS: (unknown) Hx Family COPD: (unknown) Hx Family Hepatitis: (unknown) Hx Family Psychiatric Problems: (unknown) Hx Family Tuberculosis: (unknown) ED Physical Exam - Physical Examination General/Constitutional: Awake, Alert Head: Atraumatic Eyes: PERRL Skin: No ecchymosis ENMT: Nasal exam nl Neck: No nuchal rigidity Other Respiratory comments:: Rhonchi Cardio Vascular: RRR, No murmur, gallop, rubs, NL S1 S2 Other GI comments:: Abdominal distention Extremities: No edema Neuro/Psych: No focal deficits ED Labs/Radiology/EKG Results - Lab Results Results: Laboratory Last Values WBC 9.4 Th/cmm (4.8-10.8) 01/23/18 21:15 RBC 4.20 Mil/cmm (3.80-5.10) 01/23/18 21:15 Hgb 13.6 gm/dL (12-16) 01/23/18 21:15 Hct 38.9 % (41.0-60) L 01/23/18 21:15 MCV 92.6 fl (81-100) 01/23/18 21:15 MCH 32.4 pg (27.0-31.0) H 01/23/18 21:15 MCHC Differential 35.0 pg (28.0-36.0) 01/23/18 21:15 RDW 12.0 % (11.5-20.0) 01/23/18 21:15 Plt Count 334 Th/cmm (150-400) 01/23/18 21:15 MPV 6.6 fl 01/23/18 21:15 Neutrophils % 58.3 % (40.0-80.0) 01/23/18 21:15 Lymphocytes % 31.5 % (20.0-50.0) 01/23/18 21:15 Monocytes % 7.0 % (2.0-10.0) 01/23/18 21:15 Eosinophils % 2.7 % (0.0-5.0) 01/23/18 21:15 Basophils % 0.5 % (0.0-2.0) 01/23/18 21:15 PT 9.3 SECONDS (9.5-11.5) L 01/23/18 21:15 INR 0.90 (0.5-1.4) 01/23/18 21:15 PTT (Actin FS) 27.9 SECONDS (26.0-38.0) 01/23/18 21:15 D-Dimer < 100 ng/mL (100-400) L 01/23/18 21:15 Sodium 130 mEq/L (136-145) L 01/23/18 21:15 Potassium 3.6 mEq/L (3.5-5.1) 01/23/18 21:15 Chloride 94 mEq/L (98-107) L 01/23/18 21:15 Carbon Dioxide 30.0 mEq/L (21.0-31.0) 01/23/18 21:15 Anion Gap 9.6 (7.0-16.0) 01/23/18 21:15 BUN 10 mg/dL (7-25) 01/23/18 21:15 Creatinine 0.4 mg/dL (0.6-1.2) L 01/23/18 21:15 Est GFR ( Amer) > 60.0 ml/min (>90) 01/23/18 21:15 Est GFR (Non-Af Amer) > 60.0 ml/min 01/23/18 21:15 BUN/Creatinine Ratio 25.0 01/23/18 21:15 Glucose 170 mg/dL (70-105) H 01/23/18 21:15 Whole Bld Lactic Acid 1.54 mmol/L (0.60-1.99) 01/23/18 21:15 Calcium 9.1 mg/dL (8.6-10.3) 01/23/18 21:15 Total Bilirubin 0.2 mg/dL (0.3-1.0) L 01/23/18 21:15 AST 11 U/L (13-39) L 01/23/18 21:15 ALT 13 U/L (7-52) 01/23/18 21:15 Alkaline Phosphatase 101 U/L (34-104) 01/23/18 21:15 Troponin I < 0.01 ng/mL (0.01-0.05) L 01/23/18 21:15 B-Natriuretic Peptide < 5.0 pg/mL (5.0-100.0) L 01/23/18 21:15 Total Protein 7.0 gm/dL (6.0-8.3) 01/23/18 21:15 Albumin 4.0 gm/dL (3.7-5.3) 01/23/18 21:15 Globulin 3.0 gm/dL 01/23/18 21:15 Albumin/Globulin Ratio 1.3 (1.0-1.8) 01/23/18 21:15 - Radiology Results Results: CXR: decreased right lung volume, no focal consolidation CT abdomen/pelvis: Bibasilar atelectasis, gallstones, mild ileus and rectal wall thickening indicating proctitis. ED Assessment - Assessment General Assessment: Bronchitis Bibasilar atelectasis Proctitis Hyponatremia Assessment/Comments:: CBC, CMP, Trop I, BNP CXR, EKG CT abdomen DuoNeb Admit to med surg ED Septic Shock - . Is Septic Shock (SBP<90, OR Lactate>4 mmol\L) present?: No - <6hrs of presentation: Vital Signs: Vital Signs - 8 hr 01/23/18 20:50 Temp 97.2 F HR 82 RR 16 BP 111/69 O2 Sat % 92 ED Reassessment (Disposition) - Reassessment Reassessment Condition:: Improved - Patient Disposition Discharge/Transfer:: Acute Care w/in this hosp Admitting Medical Physician:: Harry Chappell ED Discharge Plan - Patient Disposition Admit/Discharge/Transfer: Acute Care w/in this hosp Condition at Disposition: Stable
[2018-01-23 21:34] LABS: % BASOPHILS 0.5 % (0.0-2.0); % EOSINOPHILS 2.7 % (0.0-5.0); % LYMPHOCYTES 31.5 % (20.0-50.0); % NEUTROPHILS 58.3 % (40.0-80.0); EOSINOPHILE ABSOLUTE 0.3 Th/cmm (0.1-0.4); HEMATOCRIT 38.9 % (41.0-60); HEMOGLOBIN 13.6 gm/dL (12-16); MEAN CELL VOLUME 92.6 fl (81-100); MEAN CORPUSCULAR HEMOGLOBIN 32.4 pg (27.0-31.0); MEAN PLATELET VOLUME 6.6 fl; MONOCYTE ABSOLUTE 0.7 Th/cmm (0.3-1.0); NEUTROPHILE ABSOLUTE 5.4 Th/cmm (1.8-8.0); PLATELET COUNT 334 Th/cmm (150-400); WHITE BLOOD COUNT 9.4 Th/cmm (4.8-10.8)
[2018-01-23] MEDS ORDERED: Albuterol/Ipratropium Neb 3 ML AERS HHN ONE ×2 (21:38→21:45)
[2018-01-23 21:48] LABS: INR 0.9 (0.5-1.4); PROTHROMBIN TIME (TEST) 9.3 SECONDS (9.5-11.5)
[2018-01-23 21:49] LABS: ALB/GLOB RATIO 1.3 (1.0-1.8); ALKALINE PHOSPHATASE 101 U/L (34-104); ANION GAP 9.6 (7.0-16.0); BILIRUBIN,TOTAL 0.2 mg/dL (0.3-1.0); BUN - UREA NITROGEN 10 mg/dL (7-25); CALCIUM SERUM 9.1 mg/dL (8.6-10.3); CHLORIDE 94 mEq/L (98-107); CREATININE - SERUM 0.4 mg/dL (0.6-1.2); GFR AFRICAN-AMERICAN > 60.0 ml/min (>90); GFR NON AFRICAN-AMERICAN > 60.0 ml/min; GLUCOSE 170 mg/dL (70-105); POTASSIUM SERUM 3.6 mEq/L (3.5-5.1); SGOT 11 U/L (13-39); SGPT/ALT 13 U/L (7-52); SODIUM SERUM 130 mEq/L (136-145)
[2018-01-24] MEDS ORDERED: Albuterol/Ipratropium Neb 3 ML AERS HHN PRN (00:45)
[2018-01-24] MEDS: cefTRIAXone 1 GM in Sodium Chloride 0.9% 50 ML IV SCH (01:36)
[2018-01-24] MEDS: methylPREDNISolone SS 40 mg Vial IVP SCH ×4 (01:37→21:27)
[2018-01-24] MEDS: Azithromycin 500 MG in Sodium Chloride 0.9% 250 ML IV SCH (02:38)
[2018-01-24 03:03] VITALS: BP 116/70
[2018-01-24 06:12] LABS: % BASOPHILS 0.2 % (0.0-2.0); % EOSINOPHILS 0.3 % (0.0-5.0); % LYMPHOCYTES 15.8 % (20.0-50.0); % MONOCYTES 1.6 % (2.0-10.0); % NEUTROPHILS 82.1 % (40.0-80.0); HEMATOCRIT 39.6 % (41.0-60); HEMOGLOBIN 13.4 gm/dL (12-16); LYMPHOCYTE ABSOLUTE 1.4 Th/cmm (1.5-3.0); MEAN CELL VOLUME 92.1 fl (81-100); MEAN CORPUSCULAR HEMOGLOBIN 31.1 pg (27.0-31.0); MEAN CORPUSCULAR HGB CONC 33.8 pg (28.0-36.0); MEAN PLATELET VOLUME 6.7 fl; MONOCYTE ABSOLUTE 0.1 Th/cmm (0.3-1.0); NEUTROPHILE ABSOLUTE 7.4 Th/cmm (1.8-8.0); PLATELET COUNT 328 Th/cmm (150-400); RED CELL DISTRIBUTION WIDTH 12.3 % (11.5-20.0); WHITE BLOOD COUNT 8.9 Th/cmm (4.8-10.8)
[2018-01-24 06:34] LABS: ANION GAP 10.8 (7.0-16.0); BUN - UREA NITROGEN 8 mg/dL (7-25); CALCIUM SERUM 8.8 mg/dL (8.6-10.3); CARBON DIOXIDE 27.3 mEq/L (21.0-31.0); CHLORIDE 97 mEq/L (98-107); CREATININE - SERUM 0.3 mg/dL (0.6-1.2); GFR AFRICAN-AMERICAN > 60.0 ml/min (>90); GFR NON AFRICAN-AMERICAN > 60.0 ml/min; GLUCOSE 187 mg/dL (70-105); MAGNESIUM 1.8 mg/dL (1.9-2.7); POTASSIUM SERUM 4.1 mEq/L (3.5-5.1); SODIUM SERUM 131 mEq/L (136-145)
[2018-01-24 06:41] LABS: ESR SEDIMENTATION SED RATE 33 mm/hr (0-30)
[2018-01-24] MEDS: INSULIN HUMAN REGULAR 100 UNITS/ML UNIT SUBQ SCH ×2 (06:59→13:25)
[2018-01-24 08:01] LABS: C-REACTIVE PROTEIN 0.5 mg/dL (0.0-0.9)
--- NOTE | 2018-01-24 08:39 | Diagnostic Imaging Report ---
CHEST X-RAY: AP view INDICATION: Cough, congestion COMPARISON: 07/23/2015 FINDINGS: There is elevation of the right hemidiaphragm. Low lung volumes are noted. Increased bibasilar lung markings are noted. No focal consolidation or effusions. Heart size cannot be well assessed on this exam. Gas-filled loops of bowel of the abdomen are noted. Osseous structures are intact. IMPRESSION: Low lung volumes with elevation of the right hemidiaphragm and increased bibasilar markings favoring atelectatic changes. No focal consolidation is identified. Possible mild ileus.
--- NOTE | 2018-01-24 10:27 | History & Physical ---
ADMIT DATE: CHIEF COMPLAINT: Cough, congestion, and generalized weakness. HISTORY OF PRESENT ILLNESS: The patient is a 52-year-old female who lives at [facility], who was brought into the ED secondary to worsening cough, congestion and generalized weakness for about 2 days or so. 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 The patient is awake, but unable to provide a meaningful history. Pertinent findings on admission include a chest x-ray showing low lung volumes and the CT of the abdomen and pelvis showing bilateral atelectasis and proctitis. The patient has been admitted to the medical floor for further management and care. No GI symptomatology is reported by staff or is mentioned on her medical records. PAST MEDICAL HISTORY: As noted above, also history of previous UTIs, osteoporosis, peripheral vascular disease, history of pancreatic insufficiency. PAST SURGICAL HISTORY: No noted surgeries but there is a scar in the mid anterior neck area. FAMILY HISTORY: Likely noncontributory to this admission. SOCIAL HISTORY: No tobacco, ETOH or illicit drug usage. She lives at [facility]. ALLERGIES: NKDA. OUTPATIENT MEDICATIONS: Acyclovir 400 q.8, pancreatic enzyme t.i.d. with meals, aspirin 81 every day, benztropine 1 b.i.d., Tegretol 200 q.i.d., clonazepam 1 mg t.i.d., Nuedexta 20/10 b.i.d., docusate sodium 100 b.i.d., omega-3 1000 t.i.d., glipizide 5 every day with meals, Haldol 5 mg t.i.d., insulin sliding scale per protocol, melatonin 3 mg at bedtime, simvastatin 20 at bedtime, sodium chloride 1 gram q.i.d. REVIEW OF SYSTEMS: (obtained from medical records) CONSTITUTIONAL: There is no report of fever or chills noted or any recent weight loss. CARDIOVASCULAR: No chest pain. No palpitations. PULMONARY: As noted in the HPI. There are no secretions reported by staff. GASTROINTESTINAL: No bowel habit changes including no abdominal pain, nausea, vomiting, diarrhea or constipation. GENITOURINARY: There is no report of hematuria or dysuria. NEUROLOGIC: No changes in her baseline reported. PHYSICAL EXAMINATION: VITAL SIGNS: Temperature 96.6, pulse 86, respirations 17, BP 106/65, satting 95% on room air. GENERAL: She is a well-developed, well-nourished female, currently eating breakfast, appears to be in no distress. HEAD AND NECK: Normocephalic, atraumatic. Pupils reactive to light. Extraocular movement intact. NECK: There is no JVD or LAD. CARDIAC: Regular rate and rhythm. LUNGS: Coarse breath sounds bilaterally with rhonchi on both sides. ABDOMEN: Soft, supple, nontender, nondistended, normoactive bowel sounds. EXTREMITIES: Lower extremities: No edema. NEUROLOGIC: Difficult to assess given the patient's condition. Cranial nerves 2-12 appear to be within normal limits. LABORATORY DATA: On admission, white count 9.4, H and H 13/38, platelet count of 334. INR was within normal limits. Sodium 130, potassium 3.6, chloride 94, BUN 10, creatinine 0.4, glucose 170. Lactic acid 1.5, mag 1.8. LFTs were essentially within normal limits. BNP less than 5. TSH was within normal limits. DIAGNOSTICS: Please refer to the HPI. EKG shows sinus rhythm at a rate of 79. IMPRESSION: 1. COPD/asthma exacerbation 2. Bronchitis versus early pneumonia/atelectasis. 2. Hyponatremia. 3. Proctitis per CT scan results. 4. History of GERD. 5. History of seizure disorder. 6. Chronic [id number] to CVA. 7. History of CVA with left-sided hemiparesis. 8. History of pancreatic insufficiency. 9. History of dyslipidemia. PLAN: The patient has been admitted to the medical floor for further management and care. She has been placed on IV fluid and IV antibiotics, namely Rocephin and Zithromax. I have also started her on inhaled as well as IV steroids. She will be kept on her other medications as scheduled. We will monitor labs, cultures, CXR, and a pulmonary consult will also be asked for further management and care. [facility]# [id number] [facility]
[2018-01-24] MEDS: Fish Oil 1,000 MG SGL PO SCH ×3 (10:38→21:27)
[2018-01-24] MEDS: Benztropine 1 MG TAB PO SCH ×2 (10:38→17:03)
[2018-01-24] MEDS: Aspirin 81mg Chewable Tab PO SCH (10:38)
[2018-01-24] MEDS: Dextromethorphan/Quinidine 20mg/10mg Cap PO SCH ×2 (10:38→16:42)
[2018-01-24] MEDS: Pancrelipase Cap ECC PO SCH ×2 (12:45→16:40)
--- NOTE | 2018-01-24 14:26 | Diagnostic Imaging Report ---
CT abdomen and pelvis without intravenous contrast Indication: Abdominal pain Comparison: None, Technique: Axial images were obtained from the lung bases to the bilateral proximal femurs without IV contrast. Coronal reconstructions were made. total DLP: 731, CTDI13.6 FINDINGS: Hypoventilatory atelectatic changes of the lung bases are noted. Assessment of solid organs is limited due to lack of IV contrast. Exam is also limited due to motion. No evidence of focal hepatic lesions. Multiple gallstones are noted. No focal splenic lesions. Limited assessment of the pancreas demonstrates no focal lesions. No focal adrenal lesions. No no evidence of Hydronephrosis or nephrolithiasis. Distended urinary bladder is seen with multiple calcifications along the posterior aspect of the urinary bladder on the left side. Gas-filled loops of bowel are noted with moderate stool. No evidence of bowel obstruction. Partially visualized air-filled appendix is noted without evidence of surrounding inflammatory changes. There may be rectal wall thickening. No free air or free fluid. Punctate right adnexal calcifications are noted. Moderate atherosclerosis is noted. Mild degenerative changes of spine are noted. Osteopenia is noted. IMPRESSION: Multiple gallstones. Consider further assessment with ultrasound. Multiple small calculi along the dependent aspect of the bladder on the left side. No evidence of hydronephrosis or renal stones Generalized gas-filled loops of bowel with moderate stool, greatest in the ascending colon. Please clinically for possible mild ileus. Questionable rectal wall thickening. The significance of this finding should be correlated clinically. Atherosclerotic vascular disease.
[2018-01-24] MEDS: Budesonide 0.5 Mg/2 mL Ud HHN SCH (18:53)
[2018-01-24 19:42] LABS: A1C % 5.8 % (4.0-6.0)
[2018-01-24] MEDS ORDERED: Non-Formulary Item 1 EA (Melatonin [Melatonin] 6 MG) PO SCH (21:00)
[2018-01-25] MEDS: cefTRIAXone 1 GM in Sodium Chloride 0.9% 50 ML IV SCH (00:29)
[2018-01-25] MEDS: Azithromycin 500 MG in Sodium Chloride 0.9% 250 ML IV SCH (01:17)
[2018-01-25] MEDS: methylPREDNISolone SS 40 mg Vial IVP SCH (04:06)
--- NOTE | 2018-01-25 05:58 | Consultation ---
DATE OF CONSULTATION: 01/24/[address] Chappell for this consultation. HISTORY OF PRESENT ILLNESS: This is a 52-year-old female who apparently has history of CVA and COPD presented with cough, congestion, and shortness of breath. The patient was started on broad-spectrum IV antibiotics, improving so far, feels better. She has, as mentioned above, history of COPD, asthma, and CVA. SOCIAL HISTORY: History of smoking in the past, quit many years ago. REVIEW OF SYSTEMS: GENERAL: Some weakness and fatigue. CARDIOVASCULAR: No chest pain. RESPIRATORY: Shortness of breath and cough that has decreased. GASTROINTESTINAL: No nausea or vomiting. PHYSICAL EXAMINATION: GENERAL: Awake, alert, and not in acute distress. VITAL SIGNS: Temperature is 96.6, pulse 86, respirations 17, blood pressure 106/65, and saturation 95%. HEENT: Atraumatic and normocephalic. Pupils reactive to light and accommodation. Nose and throat are normal. NECK: Supple. No JVD. CHEST: There is rhonchi in bilateral bases. No wheezing. HEART: Regular rate and rhythm. ABDOMEN: Soft. EXTREMITIES: No edema. LABORATORY DATA AND DIAGNOSTIC STUDIES: WBC is 8.5, hemoglobin 13.4, hematocrit 39.6, and platelets 328. Sodium 131, potassium 4.1, BUN is 8, and creatinine 0.3. Troponin is less than 0.01. BNP is negative. Chest x-ray shows elevated right hemidiaphragm, otherwise clear. IMPRESSION: This is a 52-year-old female with: 1. Acute bronchitis. 2. Chronic obstructive pulmonary disease/asthma exacerbation. 3. Hyponatremia. PLAN: 1. IV antibiotics. 2. Nebulizer treatment. 3. Pulmonary toilet, on Pulmicort; cough medicine; and IV steroids. I will follow the patient with you. Thank you very much for this consultation. JOB# [id number]
[2018-01-25 06:40] LABS: % BASOPHILS 0.1 % (0.0-2.0); % EOSINOPHILS 0.2 % (0.0-5.0); % LYMPHOCYTES 18.1 % (20.0-50.0); % NEUTROPHILS 80.6 % (40.0-80.0); HEMATOCRIT 41.3 % (41.0-60); HEMOGLOBIN 14.1 gm/dL (12-16); LYMPHOCYTE ABSOLUTE 1.3 Th/cmm (1.5-3.0); MEAN CELL VOLUME 91.3 fl (81-100); MEAN CORPUSCULAR HEMOGLOBIN 31.1 pg (27.0-31.0); MEAN CORPUSCULAR HGB CONC 34.1 pg (28.0-36.0); MEAN PLATELET VOLUME 6.8 fl; MONOCYTE ABSOLUTE 0.1 Th/cmm (0.3-1.0); NEUTROPHILE ABSOLUTE 5.8 Th/cmm (1.8-8.0); PLATELET COUNT 348 Th/cmm (150-400); RED BLOOD COUNT 4.53 Mil/cmm (3.80-5.10); RED CELL DISTRIBUTION WIDTH 12.5 % (11.5-20.0); WHITE BLOOD COUNT 7.2 Th/cmm (4.8-10.8)
[2018-01-25 06:51] LABS: ANION GAP 12.4 (7.0-16.0); BUN - UREA NITROGEN 10 mg/dL (7-25); CALCIUM SERUM 9.4 mg/dL (8.6-10.3); CARBON DIOXIDE 28.5 mEq/L (21.0-31.0); CHLORIDE 98 mEq/L (98-107); CREATININE - SERUM 0.4 mg/dL (0.6-1.2); GFR AFRICAN-AMERICAN > 60.0 ml/min (>90); GFR NON AFRICAN-AMERICAN > 60.0 ml/min; GLUCOSE 218 mg/dL (70-105); MAGNESIUM 1.9 mg/dL (1.9-2.7); POTASSIUM SERUM 3.9 mEq/L (3.5-5.1); SODIUM SERUM 135 mEq/L (136-145)
[2018-01-25] MEDS: Budesonide 0.5 Mg/2 mL Ud HHN SCH ×2 (07:54→18:56)
[2018-01-25] MEDS: Fish Oil 1,000 MG SGL PO SCH ×3 (08:25→21:28)
[2018-01-25] MEDS: Benztropine 1 MG TAB PO SCH ×2 (08:25→16:43)
[2018-01-25] MEDS: Pancrelipase Cap ECC PO SCH ×3 (08:26→16:43)
[2018-01-25] MEDS: Dextromethorphan/Quinidine 20mg/10mg Cap PO SCH ×2 (08:26→16:43)
[2018-01-25] MEDS: Aspirin 81mg Chewable Tab PO SCH (08:27)
[2018-01-25] MEDS: INSULIN ASPART SLIDING SCALE 100 UNITS/ML UNIT SUBQ SCH (08:33)
--- NOTE | 2018-01-25 09:14 | Diagnostic Imaging Report ---
Portable chest x-ray History: Shortness of breath Allowing for portable technique the heart size is normal. No focal pulmonary parenchymal processes. No hilar or mediastinal abnormalities. Scoliosis of the thoracic spine convexity left. Impression: No acute abnormalities.
[2018-01-25] MEDS ORDERED: methylPREDNISolone SS 40 mg Vial IVP SCH ×2 (09:30→21:00)
[2018-01-26] MEDS: cefTRIAXone 1 GM in Sodium Chloride 0.9% 50 ML IV SCH (00:32)
[2018-01-26] MEDS: Azithromycin 500 MG in Sodium Chloride 0.9% 250 ML IV SCH (01:07)
[2018-01-26] MEDS: Budesonide 0.5 Mg/2 mL Ud HHN SCH (07:26)
[2018-01-26] MEDS: Fish Oil 1,000 MG SGL PO SCH (09:51)
[2018-01-26] MEDS: Aspirin 81mg Chewable Tab PO SCH (09:52)
[2018-01-26] MEDS: Dextromethorphan/Quinidine 20mg/10mg Cap PO SCH (09:52)
[2018-01-26] MEDS: Benztropine 1 MG TAB PO SCH (09:52)
[2018-01-26] MEDS: INSULIN ASPART SLIDING SCALE 100 UNITS/ML UNIT SUBQ SCH (10:24)
[2018-01-26] MEDS: Pancrelipase Cap ECC PO SCH (10:38)
--- NOTE | 2018-01-26 17:26 | Discharge Summary ---
DATE OF DISCHARGE: 01/26/2018 ADMITTING DIAGNOSES: 1. COPD/asthma exacerbation. 2. Bronchitis versus early pneumonia/atelectasis. 3. Hyponatremia. 4. Proctitis per CT scan results. 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 DISCHARGE DIAGNOSES: 1. Bronchitis-- clinically improved. 2. Chronic obstructive pulmonary disease/asthma exacerbation -- clinically improved. 3. Hyponatremia -- resolved. 4. Proctitis per CT scan -- clinically asymptomatic. CONSULTANTS: Pulmonary, Dr. Zhao. BRIEF HOSPITAL COURSE: The patient is a 52-year-old female who was sent from [facility] secondary to a couple day history of cough and congestion. At the ED pertinent findings included a chest x-ray showing low lung volumes and a CT of the abdomen and pelvis showing bilateral atelectasis and proctitis. The patient was admitted to the medical floor and placed on IV antibiotics, IV and inhaled steroids as well as IV fluids. She also was started on pulmonary supportive care and was kept on her other medications as scheduled. Her clinical picture did improve by hospital day #1 showing less congestion and less cough. She also did not show any signs and symptoms of proctitis including no diarrhea, abdominal pain, brbpr/melena or constipation. By 01/25/2018, her sodium level had improved from a level of 130 on 01/23/2018 to 135. Her followup x-ray done on 01/25/2018 also showed improvement of the atelectasis with the final impression being no acute abnormalities. DISCHARGE MEDICATIONS: Levaquin 500 mg p.o. every day, DuoNeb q. 4 hours while awake p.r.n. for shortness of breath, acyclovir 400 mg q. 8, pancreatic enzymes t.i.d. with meals, aspirin 81 every day, Cogentin 1 mg b.i.d., Pulmicort 0.5 b.i.d., carbamazepine 200 mg q.i.d., Klonopin 1 mg t.i.d., docusate sodium 100 b.i.d., omega-3 fish oil 1000 mg t.i.d., glipizide 5 mg every day with meals, Haldol 5 mg t.i.d., insulin sliding scale, Prednisone taper, Zocor 20 mg at bedtime, sodium chloride 1 tab q.i.d. CONDITION ON DISCHARGE: Stable. DISPOSITION: The patient was discharged back to [facility] under the care of Dr. Diaz. JOB# [id number] [facility]
== END 2018-01-26 13:19 | DRG 190 ==
LOC: ER 20:40 → MSI 23:55
PROVIDERS: ADMIT Internal Medicine; ATTEND Internal Medicine
DX: J44.0 Chronic obstructive pulmonary disease with (acute) lower respiratory infection (principal); J18.9 Pneumonia, unspecified organism; J45.901 Unspecified asthma with (acute) exacerbation; K56.7 Ileus, unspecified; J98.11 Atelectasis; E87.1 Hypo-osmolality and hyponatremia; I69.354 Hemiplegia and hemiparesis following cerebral infarction affecting left non-dominant side; J44.1 Chronic obstructive pulmonary disease with (acute) exacerbation; J20.9 Acute bronchitis, unspecified; E78.5 Hyperlipidemia, unspecified; K80.80 Other cholelithiasis without obstruction; K21.9 Gastro-esophageal reflux disease without esophagitis; I69.320 Aphasia following cerebral infarction; G40.909 Epilepsy, unspecified, not intractable, without status epilepticus; F32.9 Major depressive disorder, single episode, unspecified; F41.9 Anxiety disorder, unspecified; M81.0 Age-related osteoporosis without current pathological fracture; E11.51 Type 2 diabetes mellitus with diabetic peripheral angiopathy without gangrene
CPT/HCPCS: 36415-UA; 71045-TC; 80048-TC; 80053-TC; 82948-90; 83036-90; 83605; 83735-TC; 83880-TC; 84443-TC; 84484-TC; 85025-TC; 85379-TC; 85610-TC; 85652-TC; 86141-TC; 93005; 94640; 94760; 96374; 96375; J0456; J0696; J1815; J2920; J3480; J7030; Z7610

== ENCOUNTER 2018-07-09 21:43 | Inpatient (IN) | payer MEDICARE, MEDICAID ==
--- NOTE | 2018-07-09 22:34 | ED Physician Chart ---
ED Chief Complaint/HPI - Patient Information Date Seen:: 07/09/18 Time Seen:: 22:30 Chief Complaint:: cva confusion History of Present Illness:: 52 yr old female from [place] WITH FALL CONFUSION HX OF OLD CVA WITH LT SIDED WEAKNESS PT NON VERBAL WITH DROOP AND SCHIZOPHRENIA Allergies:: Allergies Allergy/AdvReac Type Severity Reaction Status Date / Time No Known Allergies Allergy Verified 07/09/18 22:24 ED Review of Systems - Review of Systems General/Constitutional: No fever Neck: No swelling Cardio Vascular: No chest pain Pulmonary: No SOB GI: No vomiting Endocrine: No polyuria Psychiatric: Prior psych history ED Past Medical History - Past Medical History Past Medical History: HTN, DM, CVA/TIA, Dyslipidemia, Arthritis, Dementia, Other (PSYCH DISORDER SCHIZOPHRENIA PER REORT) Family Medical History - Family Member Mother History Unknown: Yes Ethnicity: Unknown Living Status: Unknown Hx Family Cancer: (unknown) Hx Family Coronary Artery Disease: (unknown) Hx Family Congestive Heart Failure: (unknown) Hx Family Hypertension: (unknown) Hx Family Stroke: (unknown) Hx Family Diabetes: (unknown) Hx Family Seizures: (unknown) Hx Family Dementia: (unknown) Hx Family AIDS: (unknown) Hx Family COPD: (unknown) Hx Family Hepatitis: (unknown) Hx Family Psychiatric Problems: (unknown) Hx Family Tuberculosis: (unknown) ED Physical Exam - Physical Examination Head: Atraumatic (PT HAD LT FACIAL DROOP) Neck: Nontender Respiratory: Nl effort/Exclusion Cardio Vascular: RRR GI: No tenderness/rebounding/guarding Extremities: No tenderness or effusion ED Septic Shock - . Is Septic Shock (SBP<90, OR Lactate>4 mmol\L) present?: No ED Reassessment (Disposition) - Reassessment Reassessment Condition:: Unchanged - Diagnosis Diagnosis:: FALL OLD CVA - Patient Disposition Admitted to:: Med/Surg
[2018-07-09 22:48] LABS: % BASOPHILS 0.4 % (0.0-2.0); % EOSINOPHILS 2.4 % (0.0-5.0); % LYMPHOCYTES 34.6 % (20.0-50.0); % MONOCYTES 7.4 % (2.0-10.0); % NEUTROPHILS 55.2 % (40.0-80.0); EOSINOPHILE ABSOLUTE 0.2 Th/cmm (0.1-0.4); HEMATOCRIT 44.1 % (41.0-60); HEMOGLOBIN 15.1 gm/dL (12-16); LYMPHOCYTE ABSOLUTE 2.9 Th/cmm (1.5-3.0); MEAN CORPUSCULAR HEMOGLOBIN 31.7 pg (27.0-31.0); MEAN CORPUSCULAR HGB CONC 34.1 pg (28.0-36.0); MEAN PLATELET VOLUME 6.4 fl; MONOCYTE ABSOLUTE 0.6 Th/cmm (0.3-1.0); NEUTROPHILE ABSOLUTE 4.8 Th/cmm (1.8-8.0); PLATELET COUNT 399 Th/cmm (150-400); RED BLOOD COUNT 4.75 Mil/cmm (3.80-5.10); WHITE BLOOD COUNT 8.5 Th/cmm (4.8-10.8)
[2018-07-09 23:21] LABS: ALB/GLOB RATIO 1.1 (1.0-1.8); ALBUMIN 4.3 gm/dL (3.7-5.3); ALKALINE PHOSPHATASE 100 U/L (34-104); ANION GAP 13.5 (7.0-16.0); BILIRUBIN,TOTAL 0.2 mg/dL (0.3-1.0); BUN - UREA NITROGEN 9 mg/dL (7-25); CALCIUM SERUM 9.7 mg/dL (8.6-10.3); CARBON DIOXIDE 29.4 mEq/L (21.0-31.0); CHLORIDE 90 mEq/L (98-107); CREATININE - SERUM 0.5 mg/dL (0.6-1.2); GFR AFRICAN-AMERICAN > 60.0 ml/min (>90); GFR NON AFRICAN-AMERICAN > 60.0 ml/min; GLUCOSE 133 mg/dL (70-105); POTASSIUM SERUM 3.9 mEq/L (3.5-5.1); SGOT 11 U/L (13-39); SGPT/ALT 9 U/L (7-52); SODIUM SERUM 129 mEq/L (136-145); TOTAL PROTEIN,SERUM 8.1 gm/dL (6.0-8.3)
[2018-07-09] MEDS ORDERED: Sodium Chloride 0.9% 1,000 ML IV ONE (23:47)
[2018-07-10] MEDS ORDERED: Albuterol Nebulizer 2.5mg/3mL HHN PRN (00:39)
[2018-07-10] MEDS ORDERED: Ipratropium Neb 0.5 mg/2.5 mL UD HHN PRN (00:39)
[2018-07-10] MEDS: D5-0.9%NS 1,000 ML IV SCH ×2 (02:49→17:01)
[2018-07-10 03:36] VITALS: BP 144/71
[2018-07-10] MEDS ORDERED: INSULIN HUMAN REGULAR 100 UNITS/ML UNIT SUBQ SCH (07:30)
--- NOTE | 2018-07-10 08:53 | Diagnostic Imaging Report ---
Head CT without intravenous contrast Indication: CVA Comparison: Head CT on 09/23/2014 Technique: Axial images were obtained from the vertex to the skull base without IV contrast. Coronal reconstructions were made. Total DLP: 696, CTDI34 FINDINGS: Images of the brain obtained without contrast demonstrate no evidence of an acute hemorrhage. Bifrontal lobe encephalomalacia is noted most pronounced on the right side. Right temporal lobe encephalomalacia is also noted. Diffuse atrophy is noted. The ventricles and basal cisterns are patent. No mass effect or midline shift. No evidence of a skull fracture or focal soft tissue swelling. The visualized paranasal sinuses are clear. There are severe degenerative changes of the left TMJ joint ,partially visualized. IMPRESSION: No evidence of acute intracranial hemorrhage Bifrontal lobe encephalomalacia right greater than left, and right temporal encephalomalacia which may be due to old trauma or old infarct. Diffuse atrophy.
[2018-07-10] MEDS: Fish Oil 1,000 MG SGL PO SCH ×3 (08:57→20:18)
[2018-07-10] MEDS: Benztropine 1 MG TAB PO SCH ×2 (08:57→16:16)
[2018-07-10] MEDS: Aspirin 81mg Chewable Tab PO SCH (08:57)
[2018-07-10] MEDS: Pantoprazole 40 mg EC Tab PO SCH ×2 (08:57→16:16)
[2018-07-10] MEDS: INSULIN ASPART SLIDING SCALE 100 UNITS/ML UNIT SUBQ SCH ×3 (11:42→20:19)
[2018-07-10] MEDS ORDERED: Non-Formulary Item 1 EA (Melatonin [Melatonin] 3 MG) PO SCH (21:00)
[2018-07-11] MEDS: D5-0.9%NS 1,000 ML IV SCH ×2 (04:17→12:01)
[2018-07-11 05:22] LABS: % BASOPHILS 0.5 % (0.0-2.0); % EOSINOPHILS 2.5 % (0.0-5.0); % LYMPHOCYTES 34.7 % (20.0-50.0); % MONOCYTES 7.3 % (2.0-10.0); EOSINOPHILE ABSOLUTE 0.2 Th/cmm (0.1-0.4); HEMATOCRIT 40.9 % (41.0-60); HEMOGLOBIN 13.7 gm/dL (12-16); LYMPHOCYTE ABSOLUTE 2.5 Th/cmm (1.5-3.0); MEAN CELL VOLUME 92.8 fl (81-100); MEAN CORPUSCULAR HEMOGLOBIN 31.2 pg (27.0-31.0); MEAN CORPUSCULAR HGB CONC 33.6 pg (28.0-36.0); MEAN PLATELET VOLUME 6.5 fl; MONOCYTE ABSOLUTE 0.5 Th/cmm (0.3-1.0); PLATELET COUNT 386 Th/cmm (150-400); RED BLOOD COUNT 4.41 Mil/cmm (3.80-5.10); WHITE BLOOD COUNT 7.2 Th/cmm (4.8-10.8)
[2018-07-11] MEDS: INSULIN ASPART SLIDING SCALE 100 UNITS/ML UNIT SUBQ SCH ×4 (07:06→20:36)
[2018-07-11 07:30] LABS: ANION GAP 13.1 (7.0-16.0); BUN - UREA NITROGEN 6 mg/dL (7-25); CALCIUM SERUM 9.1 mg/dL (8.6-10.3); CARBON DIOXIDE 27.5 mEq/L (21.0-31.0); CHLORIDE 97 mEq/L (98-107); CREATININE - SERUM 0.3 mg/dL (0.6-1.2); GFR AFRICAN-AMERICAN > 60.0 ml/min (>90); GFR NON AFRICAN-AMERICAN > 60.0 ml/min; GLUCOSE 140 mg/dL (70-105); POTASSIUM SERUM 3.6 mEq/L (3.5-5.1); SODIUM SERUM 134 mEq/L (136-145)
[2018-07-11] MEDS: Benztropine 1 MG TAB PO SCH ×2 (08:27→16:10)
[2018-07-11] MEDS: Aspirin 81mg Chewable Tab PO SCH (08:27)
[2018-07-11] MEDS: Fish Oil 1,000 MG SGL PO SCH ×3 (08:27→20:38)
[2018-07-11] MEDS: Pantoprazole 40 mg EC Tab PO SCH ×2 (08:27→16:10)
--- NOTE | 2018-07-11 10:19 | Diagnostic Imaging Report ---
Head CT without intravenous contrast Indication: CVA Comparison: 07/09/2018 Technique: Axial images were obtained from the vertex to the skull base without IV contrast. Coronal reconstructions were made. Total DLP: 1057, [id number] FINDINGS: Images of the brain obtained without contrast demonstrate evidence of bifrontal lobe encephalomalacia right greater than left. Right temporal lobe encephalomalacia is noted. The ventricles and basal cisterns are patent. No mass effect or midline shift. Atrophy is noted. Assessment for skull fracture is limited due to motion. No significant focal soft tissue swelling. There is mucosal thickening paranasal sinuses. IMPRESSION: No evidence of and acute intracranial hemorrhage Redemonstration of bifrontal and right temporal encephalomalacia which may be due to old infarcts Atrophy. Given clinical history is indicated, MRI follow-up may also be obtained.
--- NOTE | 2018-07-11 11:12 | Consultation ---
DATE OF CONSULTATION: 07/11/2018 PSYCHIATRIC CONSULTATION REQUESTING PHYSICIAN: Dr. Mukherjee. REASON FOR CONSULTATION: Psychosis. HISTORY OF PRESENT ILLNESS: This patient is a 52-year-old female, resident of [facility]. The patient has been brought to the Emergency Room because of congestion and generalized weakness and psychiatric consultation is called to address the issue of behavior problems. Chart is reviewed. The patient is interviewed. The patient is not able to provide much of information, but the patient has a history of being treated for bipolar disorder with Tegretol, Klonopin, and Neudexta. The patient, at this time, has not been able to provide, but no major behavioral problems are noted at this time. The patient is moaning and groaning and I am not able to get much of information. No major behavioral problems are noted. The patient is currently on 200 mg 4 times a day of carbamazepine and benztropine 1 mg twice a day and we will continue with the medications and observe the patient. MENTAL STATUS EXAMINATION: Significant for the patient being 52-year-old, superficially cooperative. Eye contact is noted to be poor. Mood is noted to be irritable. The patient is moaning and groaning and is not providing much of information. Mood swings seem to be under control. No major behavioral problems are noted at this time. The patient is not suicidal or homicidal at this time. DIAGNOSTIC IMPRESSION: Bipolar disorder, not otherwise specified. PLAN: Continue the patient with Tegretol and follow her up. JOB# [id number]
[2018-07-11] MEDS ORDERED: D5-0.9%NS 1,000 ML IV SCH (12:45)
--- NOTE | 2018-07-11 15:21 | History and Physical ---
History of Present Illness - HPI Chief Complaint: (patient was seen and examined on 07/10/18 late entry h&p) s/p fall HPI: This is a 52-year old female who is a [facility] admitted to the medsurg unit due to s/p fall at the snf. Patient was noted with increase in weakness. Vital Signs: Last Vital Signs Temp 97.8 F 07/11/18 12:10 Pulse 72 07/11/18 12:10 Resp 16 07/11/18 12:10 BP 128/75 07/11/18 12:10 Pulse Ox 100 07/11/18 12:10 Past Medical History Other History: HTN, DM, CVA/TIA, Dyslipidemia, Arthritis, Dementia, SCHIZOPHRENIA Family Medical History - Family Member Mother History Unknown: Yes Ethnicity: Unknown Living Status: Unknown Hx Family Cancer: (unknown) Hx Family Coronary Artery Disease: (unknown) Hx Family Congestive Heart Failure: (unknown) Hx Family Hypertension: (unknown) Hx Family Stroke: (unknown) Hx Family Diabetes: (unknown) Hx Family Seizures: (unknown) Hx Family Dementia: (unknown) Hx Family AIDS: (unknown) Hx Family COPD: (unknown) Hx Family Hepatitis: (unknown) Hx Family Psychiatric Problems: (unknown) Hx Family Tuberculosis: (unknown) Social History Smoke: No Alcohol: None Drugs: None Lives: Half-Way - Medications Home Medications: Home Medication Medication Instructions Recorded Type Melatonin 3 mg PO HS 01/23/18 History Amylase/Lipase/Protease 1 ecc PO TIDWM ecc 01/26/18 Rx [Pancrelipase 76810 U-5000 [id number] U] Aspirin [Aspirin Chewable] 81 mg PO DAILY ctb 01/26/18 Rx Benztropine [Cogentin*] 1 mg PO BID tab 01/26/18 Rx Docusate Sodium [Colace] 100 mg PO BID cap 01/26/18 Rx Fish Oil [[place] 3] 1,000 mg PO TID sgl 01/26/18 Rx Glipizide [Glucotrol] 5 mg PO QDAC tab 01/26/18 Rx Haloperidol [Haldol*] 5 mg PO TID tab 01/26/18 Rx Simvastatin [Zocor*] 20 mg PO HS tab 01/26/18 Rx Sodium Chloride Tab [NaCL Tab] 1 gm PO QID tab 01/26/18 Rx clonazePAM [klonoPIN] 1 mg PO TID tab 01/26/18 Rx Carbamazepine [Tegretol] 200 mg PO QID 07/09/18 History Insulin Human Regular [NovoLIN R] See Protocol SUBQ ACHS 07/09/18 History - Allergies Allergies/Adverse Reactions: Allergies Allergy/AdvReac Type Severity Reaction Status Date / Time No Known Allergies Allergy Verified 07/09/18 22:24 Review of Systems - Review of Systems Constitutional: Report: Weakness Eyes: Report: No Significant Respiratory: Report: No Significant Cardiovascular: Report: No Significant Neurological: Report: Weakness Physical Exam - Physical Exam HEENT: Report: Ears Nose Throat within normal limits Neck: Report: Within normal limits Cardiovascular Systems: Report: +s1/s2 noted, Regular, Rate and Rhythm Respiratory: Report: Breath Sounds are within normal limits, Clear to Auscultation of lung castro Abdomen: Report: Non-tender to palpation Extremities: Report: Non-tender to palpation. Skin: Report: Color of skin is within normal limits, Warm, Dry Neuro/Psych: Report: Mood affect is within normal limits, Weakness or sensory loss noted. - Lab Results All Lab Results last 24 hours: Laboratory Results - last 24 hr 07/10/18 07/10/18 07/11/18 16:30 20:09 04:20 WBC 7.2 RBC 4.41 Hgb 13.7 Hct 40.9 L MCV 92.8 MCH 31.2 H MCHC Differential 33.6 RDW 12.0 Plt Count 386 MPV 6.5 Neutrophils % 55.0 Lymphocytes % 34.7 Monocytes % 7.3 Eosinophils % 2.5 Basophils % 0.5 Sodium Potassium Chloride Carbon Dioxide Anion Gap BUN Creatinine Est GFR ( Amer) Est GFR (Non-Af Amer) BUN/Creatinine Ratio Glucose POC Glucose 165 H 172 H Calcium Ammonia 07/11/18 07/11/18 07/11/18 04:20 04:20 06:23 WBC RBC Hgb Hct MCV MCH MCHC Differential RDW Plt Count MPV Neutrophils % Lymphocytes % Monocytes % Eosinophils % Basophils % Sodium 134 L Potassium 3.6 Chloride 97 L Carbon Dioxide 27.5 Anion Gap 13.1 BUN 6 L Creatinine 0.3 L Est GFR ( Amer) > 60.0 Est GFR (Non-Af Amer) > 60.0 BUN/Creatinine Ratio 20.0 Glucose 140 H POC Glucose 133 H Calcium 9.1 Ammonia 40 07/11/18 11:24 WBC RBC Hgb Hct MCV MCH MCHC Differential RDW Plt Count MPV Neutrophils % Lymphocytes % Monocytes % Eosinophils % Basophils % Sodium Potassium Chloride Carbon Dioxide Anion Gap BUN Creatinine Est GFR ( Amer) Est GFR (Non-Af Amer) BUN/Creatinine Ratio Glucose POC Glucose 106 H Calcium Ammonia Microbiology 07/10/18 01:57 - Final Nares NO MRSA ISOLATED 07/09/18 22:45 - Preliminary Blood NO GROWTH AFTER 24 HOURS 07/09/18 22:35 - Preliminary Blood NO GROWTH AFTER 24 HOURS - Assessment Assessment: s/p fall near syncope HTN DM hx cva Dyslipidemia Arthritis Dementia schizophrenia - Plan Plan: neurology consultation psych consult fall precautions ivf for hydration follow up labs continue current orders
--- NOTE | 2018-07-11 15:24 | Internal Medicine Prog Note ---
Internal Medicine Subjective - Subjective Service Date: 07/11/18 Patient seen and examined:: with staff Patient is:: awake, verbal Per staff patient has:: tolerating meds Internal Medicine Objective - Results Result Diagrams: 07/11/18 04:20 07/11/18 04:20 Recent Labs: Laboratory Last Values WBC 7.2 Th/cmm (4.8-10.8) 07/11/18 04:20 RBC 4.41 Mil/cmm (3.80-5.10) 07/11/18 04:20 Hgb 13.7 gm/dL (-16) 07/11/18 04:20 Hct 40.9 % (41.0-60) L 07/11/18 04:20 MCV 92.8 fl (81-100) 07/11/18 04:20 MCH 31.2 pg (27.0-31.0) H 07/11/18 04:20 MCHC Differential 33.6 pg (28.0-36.0) 07/11/18 04:20 RDW 12.0 % (11.5-20.0) 07/11/18 04:20 Plt Count 386 Th/cmm (150-400) 07/11/18 04:20 MPV 6.5 fl 07/11/18 04:20 Neutrophils % 55.0 % (40.0-80.0) 07/11/18 04:20 Lymphocytes % 34.7 % (20.0-50.0) 07/11/18 04:20 Monocytes % 7.3 % (2.0-10.0) 07/11/18 04:20 Eosinophils % 2.5 % (0.0-5.0) 07/11/18 04:20 Basophils % 0.5 % (0.0-2.0) 07/11/18 04:20 Sodium 134 mEq/L (136-145) L 07/11/18 04:20 Potassium 3.6 mEq/L (3.5-5.1) 07/11/18 04:20 Chloride 97 mEq/L (98-107) L 07/11/18 04:20 Carbon Dioxide 27.5 mEq/L (21.0-31.0) 07/11/18 04:20 Anion Gap 13.1 (7.0-16.0) 07/11/18 04:20 BUN 6 mg/dL (7-25) L 07/11/18 04:20 Creatinine 0.3 mg/dL (0.6-1.2) L 07/11/18 04:20 Est GFR ( Amer) > 60.0 ml/min (>90) 07/11/18 04:20 Est GFR (Non-Af Amer) > 60.0 ml/min 07/11/18 04:20 BUN/Creatinine Ratio 20.0 07/11/18 04:20 Glucose 140 mg/dL (70-105) H 07/11/18 04:20 POC Glucose 106 MG/DL (70 - 105) H 07/11/18 11:24 Calcium 9.1 mg/dL (8.6-10.3) 07/11/18 04:20 Total Bilirubin 0.2 mg/dL (0.3-1.0) L 07/09/18 22:40 AST 11 U/L (13-39) L 07/09/18 22:40 ALT 9 U/L (7-52) 07/09/18 22:40 Alkaline Phosphatase 100 U/L (34-104) 07/09/18 22:40 Ammonia 40 umol/L (16-53) 07/11/18 04:20 Total Protein 8.1 gm/dL (6.0-8.3) 07/09/18 22:40 Albumin 4.3 gm/dL (3.7-5.3) 07/09/18 22:40 Globulin 3.8 gm/dL 07/09/18 22:40 Albumin/Globulin Ratio 1.1 (1.0-1.8) 07/09/18 22:40 - Physical Exam Vitals and I&O: Vital Signs Temp 97.8 F 07/11/18 12:10 Pulse 72 07/11/18 12:10 Resp 16 07/11/18 12:10 BP 128/75 07/11/18 12:10 Pulse Ox 100 07/11/18 12:10 Intake & Output 07/10/18 07/11/18 07/11/18 18:59 06:59 18:59 Intake Total 1400 1000 773.333 Balance 1400 1000 773.333 Weight (lbs) 125 lb Intake: Intake, IV Amount 1000 1000 773.333 D5-0.9%Ns 1,000 ml @ 100 1000 1000 773.333 mls/hr IV .Q10H [facility] Rx#: [id number] Oral 400 Other: # Voids 4 # Bowel Movements 0 Weight Source Bedscale Active Medications: Current Medications Acetaminophen (Tylenol) 650 mg PO Q4H PRN PRN Reason: Pain Or Fever above 101 Stop: 09/08/18 00:38 Last Admin: 07/10/18 03:10 Dose: 650 mg Albuterol Sulfate (Albuterol 2.5mg/3ml Neb Ud) 2.5 mg HHN Q2HRT PRN PRN Reason: Shortness of Breath or Wheeze Stop: 09/08/18 00:38 Lipase/Protease/Amylase (Zenpep 5,000 U) 1 cap PO TIDWM [facility] Stop: 09/08/18 07:59 Last Admin: 07/11/18 12:01 Dose: 1 cap Aspirin (Aspirin Chewable) 81 mg PO DAILY [facility] Stop: 09/08/18 08:59 Last Admin: 07/11/18 08:27 Dose: 81 mg Benztropine Mesylate (Cogentin) 1 mg PO BID [facility] Stop: 09/08/18 08:59 Last Admin: 07/11/18 08:27 Dose: 1 mg Carbamazepine (Tegretol) 200 mg PO QID [facility]; Protocol Stop: 09/08/18 08:59 Last Admin: 07/11/18 12:01 Dose: 200 mg Docusate Sodium (Colace) 100 mg PO BID [facility] Stop: 09/08/18 08:59 Last Admin: 07/11/18 08:27 Dose: 100 mg Fish Oil ([place] 3) 1,000 mg PO TID [facility] Stop: 09/08/18 08:59 Last Admin: 07/11/18 13:01 Dose: 1,000 mg Glipizide (Glucotrol) 5 mg PO QDAC [facility] Stop: 09/08/18 07:29 Last Admin: 07/11/18 07:09 Dose: 5 mg Heparin Sodium (Porcine) (Heparin) 5,000 units SUBQ Q12HR [facility] Stop: 09/08/18 08:59 Last Admin: 07/11/18 08:28 Dose: 5,000 units Dextrose/Sodium Chloride (D5-0.9%Ns) 1,000 mls @ 70 mls/hr IV .[id number] [facility] Stop: 09/09/18 12:44 Insulin Aspart (Novolog Insulin Sliding Scale) 0 units SUBQ ACHS [facility]; Protocol Stop: 09/08/18 11:29 Last Admin: 07/11/18 11:29 Dose: Not Given Ipratropium [place] (Atrovent Neb 0.5mg/2.5ml) 0.5 mg HHN Q2HRT PRN PRN Reason: Shortness of Breath or Wheeze Stop: 09/08/18 00:38 Ondansetron HCl (Zofran) 4 mg IV Q8H PRN PRN Reason: Nausea / Vomiting Stop: 09/08/18 00:38 Pantoprazole Sodium (Protonix) 40 mg PO BID [facility] Stop: 09/08/18 08:59 Last Admin: 07/11/18 08:27 Dose: 40 mg Simvastatin (Zocor) 20 mg PO HS [facility]; Protocol Stop: 09/08/18 20:59 Last Admin: 07/10/18 20:18 Dose: 20 mg Sodium Chloride (Nacl Tab) 1 gm PO QID [facility] Stop: 09/08/18 08:59 Last Admin: 07/11/18 12:01 Dose: 1 gm General: weak, alert HEENT: NC/AT, PERRLA Neck: Supple Lungs: CTAB Cardiovascular: RRR, Normal S1, Normal S2, without murmur Abdomen: soft, non-tender, non-distended, positive bowel sound Extremities: excoriation Neurological: alert - Procedures Procedures: Procedures Procedure Code Date ASPIR CURETT UTERUS NEC 69.59 05/02/11 DILATION AND CURETTAGE 81792 05/02/11 INJECT/INFUSE NEC 99.29 02/15/14 OTHER GROUP THERAPY 94.44 07/28/14 Internal Medicine Assmt/Plan - Assessment Assessment: s/p fall near syncope HTN DM hx cva Dyslipidemia Arthritis Dementia schizophrenia - Plan Plan: fall precautions ivf for hydration follow up labs continue current orders
--- NOTE | 2018-07-11 16:34 | Consultation ---
DATE OF CONSULTATION: 07/10/2018 NEUROLOGY CONSULT HISTORY OF PRESENT ILLNESS: The patient is 52-year-old. The patient had a fall. The patient appears to be confused. Awake, she will answer simple questions and follow instructions. The patient is from a alf. Underlying history of schizophrenia and dementia. OTHER PAST MEDICAL HISTORY: 1. Previous stroke with left-sided weakness, but generally also patient has poor ambulation, gait difficulty. 2. History of schizophrenia. 3. Dementia. 4. Arthritis. 5. Dyslipidemia. 6. Diabetes. 7. Hypertension. MEDICATIONS: As per reconciliation. Here, the patient is on aspirin 81, Cogentin, carbamazepine 200 q.i.d., glipizide, Zofran, Protonix, simvastatin. REVIEW OF SYSTEMS: Twelve point negative except for above. PHYSICAL EXAMINATION: VITAL SIGNS: Temperature 98.6, blood pressure 128/74, pulse is 76. NECK: Supple, no bruits. HEART: Sounds S1, S2. LUNGS: Clear. NEUROLOGIC: The patient is awake. She does follow some instructions, but very limited speech, dysarthria. Patient able to name pen. Pupils react to light. Difficult to know if any field defect. Face is immobile both sides. There is some tremor, head and jaw. MOTOR: She has significantly increased tone on the left arm and leg with spasticity. Really not much movement of the left arm, not much movement of left leg. The patient in addition also has somewhat increased tone, right sided. Some rigidity. Reflexes about 1-2+ more on the left side. Knees are about 2+, 3 on the left. Babinski on the left. INVESTIGATIONS: CT scan of the head shows bifrontal encephalomalacia, right greater than left and also right temporal previous stroke or trauma. IMPRESSION: 1. Stroke with left hemiparesis. 2. Ataxia. 3. Fall. 4. Schizophrenia. 5. The patient with Parkinson features, probably secondary to medications. 6. Diabetes. 7. Hyperlipidemia. PLAN: We will do carotid Doppler studies. Lab studies. JOB# [id number]
[2018-07-12 05:42] LABS: % BASOPHILS 0.5 % (0.0-2.0); % EOSINOPHILS 3.5 % (0.0-5.0); % LYMPHOCYTES 34.2 % (20.0-50.0); % MONOCYTES 9.4 % (2.0-10.0); % NEUTROPHILS 52.4 % (40.0-80.0); EOSINOPHILE ABSOLUTE 0.3 Th/cmm (0.1-0.4); HEMATOCRIT 38.8 % (41.0-60); HEMOGLOBIN 13.2 gm/dL (12-16); LYMPHOCYTE ABSOLUTE 2.8 Th/cmm (1.5-3.0); MEAN CORPUSCULAR HEMOGLOBIN 31.6 pg (27.0-31.0); MEAN CORPUSCULAR HGB CONC 33.9 pg (28.0-36.0); MEAN PLATELET VOLUME 6.9 fl; MONOCYTE ABSOLUTE 0.8 Th/cmm (0.3-1.0); NEUTROPHILE ABSOLUTE 4.3 Th/cmm (1.8-8.0); PLATELET COUNT 365 Th/cmm (150-400); RED BLOOD COUNT 4.18 Mil/cmm (3.80-5.10); RED CELL DISTRIBUTION WIDTH 11.5 % (11.5-20.0); WHITE BLOOD COUNT 8.2 Th/cmm (4.8-10.8)
[2018-07-12 06:01] LABS: ANION GAP 12.6 (7.0-16.0); BUN - UREA NITROGEN 10 mg/dL (7-25); CARBON DIOXIDE 29.2 mEq/L (21.0-31.0); CHLORIDE 91 mEq/L (98-107); CREATININE - SERUM 0.3 mg/dL (0.6-1.2); GFR AFRICAN-AMERICAN > 60.0 ml/min (>90); GFR NON AFRICAN-AMERICAN > 60.0 ml/min; GLUCOSE 121 mg/dL (70-105); MAGNESIUM 1.8 mg/dL (1.9-2.7); POTASSIUM SERUM 3.8 mEq/L (3.5-5.1); SODIUM SERUM 129 mEq/L (136-145)
[2018-07-12] MEDS: INSULIN ASPART SLIDING SCALE 100 UNITS/ML UNIT SUBQ SCH ×2 (08:13→12:06)
[2018-07-12] MEDS: Fish Oil 1,000 MG SGL PO SCH ×3 (09:25→14:53)
[2018-07-12] MEDS: Pantoprazole 40 mg EC Tab PO SCH ×2 (09:26→09:46)
[2018-07-12] MEDS: Benztropine 1 MG TAB PO SCH ×2 (09:26→09:44)
[2018-07-12] MEDS: Aspirin 81mg Chewable Tab PO SCH ×2 (09:26→09:43)
[2018-07-12] MEDS ORDERED: Haloperidol Lactate 5 mg/mL 1mL Vial IM ONE (11:32)
[2018-07-12] MEDS ORDERED: Mag Sulfate 2gm/50mL Premix 2 GM/50 ML BAG IV ONE (12:01)
[2018-07-12 12:15] LABS: FOLIC ACID 4.8 ng/mL (>3.0)
--- NOTE | 2018-07-12 13:26 | Discharge Summary ---
DATE OF DISCHARGE: 07/12/2018 CHIEF COMPLAINT: Status post fall, passing out. HISTORY OF PRESENT ILLNESS: This is a 52-year-old female with history of stroke in the past, diabetes, hypercholesterolemia, ____ dementia, admitted from nursing facility secondary to episodes of multiple strokes. The patient also was noted to be nonresponsive at some time and brought in for further management. PHYSICAL EXAMINATION: VITAL SIGNS: Blood pressure 123/83, respiratory rate 18, pulse 89, temperature 97.7. GENERAL: Elderly female, appears chronically ill. NECK: Supple. No mass. LUNGS: Equal breath sounds. Few rhonchi. HEART: Regular rate and rhythm without appreciable murmurs. ABDOMEN: Soft, globular. EXTREMITIES: Positive excoriations. NEUROLOGIC: Limited. The patient is bedbound. HOSPITAL COURSE: The patient was admitted to [facility] bed. The patient had a head CT, which showed bifrontal level encephalomalacia, right greater than left, maybe secondary old infarct, diffuse atrophy. The patient was seen by Dr. Calzada for Neurology and Dr. Vaughan for Psychiatry. The patient's medications were adjusted. The patient has remained stable. We will continue care at a lower level of care. CONDITION ON DISCHARGE: Fair. OVERALL PROGNOSIS: Fair. DISCHARGE INSTRUCTIONS: The patient needs to continue current management. The patient is to be discharged to a [facility] facility after replacing electrolytes. [facility]# [id number]
--- NOTE | 2018-07-13 07:26 | Progress Notes ---
DATE: 07/12/2018 PSYCHIATRIC PROGRESS NOTE SUBJECTIVE: Staff was spoken to. The patient is interviewed. Mood is noted to be irritable. Affect is constricted. Insight and judgment are noted to be very much impaired. Impulse control is noted to be very poor. Coping skills are also noted to be very poor. The patient has been screaming and yelling. The patient has to be given a dose of the Haldol. No side effects to the medications are noted. ASSESSMENT: The patient is still impulsive and psychotic. PLAN: To continue the patient with current medications and followup. JOB# [id number]
== END 2018-07-12 16:48 | DRG 56 ==
LOC: ER 21:43 → MSI 07-10 00:40
PROVIDERS: ADMIT Internal Medicine; ATTEND Internal Medicine
DX: G31.9 Degenerative disease of nervous system, unspecified (principal); R53.2 Functional quadriplegia; E87.1 Hypo-osmolality and hyponatremia; I69.354 Hemiplegia and hemiparesis following cerebral infarction affecting left non-dominant side; R55 Syncope and collapse; E78.5 Hyperlipidemia, unspecified; R53.81 Other malaise; R29.6 Repeated falls; M19.90 Unspecified osteoarthritis, unspecified site; F20.9 Schizophrenia, unspecified; E11.9 Type 2 diabetes mellitus without complications; G20 Parkinson's disease; F31.9 Bipolar disorder, unspecified; I10 Essential (primary) hypertension; I69.392 Facial weakness following cerebral infarction; I69.393 Ataxia following cerebral infarction; E78.00 Pure hypercholesterolemia, unspecified; G93.89 Other specified disorders of brain; F02.80 Dementia in other diseases classified elsewhere, unspecified severity, without behavioral disturbance, psychotic disturbance, mood disturbance, and anxiety; W18.30XA Fall on same level, unspecified, initial encounter; Y93.89 Activity, other specified; Y92.89 Other specified places as the place of occurrence of the external cause; Y99.8 Other external cause status; Z79.82 Long term (current) use of aspirin; Z79.4 Long term (current) use of insulin
CPT/HCPCS: 36415-UA; 70450-TC; 80048-TC; 80053-TC; 82140-TC; 82607-90; 82746-90; 82948-90; 83735-TC; 85025-TC; 94760; 97530; J1200; J1630; J1644; J1815; J3475; J7042; J7070; X3904; Z7610

== ENCOUNTER 2018-12-14 18:50 | Inpatient (IN) | payer MEDICARE, BC ==
--- NOTE | 2018-12-14 19:22 | ED Physician Chart ---
ED Chief Complaint/HPI - Patient Information Date Seen:: 12/14/18 Time Seen:: 19:00 Chief Complaint:: Hematemesis History of Present Illness:: onset x one day of N/V, hematemesis; no report of trauma, H/As, neck pain, cough , C/P, SOB, Abd. pain, A/D/C, fever, chills, or urinary s/s Allergies:: Allergies Allergy/AdvReac Type Severity Reaction Status Date / Time No Known Allergies Allergy Verified 07/09/18 22:24 Vitals:: Vital Signs - 8 hr 12/14/18 19:09 Temp 97.0 F HR 70 RR 19 BP 128/78 O2 Sat % 98 Historian:: Patient, EMS Review:: Nurse's Note Reviewed, Old Chart Reviewed, EMS run form Reviewed ED Review of Systems - Review of Systems General/Constitutional: No fever, No chills, No weight loss, No weakness, No diaphoresis, No edema, No loss of appetite Skin: No skin lesions, No rash, No bruising Head: No headache, No light-headedness Eyes: No loss of vision, No pain, No diplopia ENT: No earache, No nasal drainage, No sore throat, No tinnitus Neck: No neck pain, No swelling, No thyromegaly, No stiffness, No mass noted Cardio Vascular: No chest pain, No palpitations, No PND, No orthopnea, No edema Pulmonary: No SOB, No cough, No sputum, No wheezing GI: No nausea, No vomiting, No diarrhea, No pain, No melena, No hematochezia, No constipation, Hematemesis G/U: No dysuria, No frequency, No hematuria, No nacturia Network Operations Analyst: No vaginal discharge, No abnormal vaginal bleed, No contraction Musculoskeletal: No bone or joint pain, No back pain, No muscle pain Endocrine: No polyuria, No polydipsia Psychiatric: Prior psych history, Depression, Anxiety, No suicidal ideation, No homicidal ideation, No auditory hallucination, No visual hallucination Hematopoietic: No bruising, No lymphadenopathy Allergic/Immuno: No urticaria, No angioedema Neurological: No syncope, No focal symptoms, No weakness, No paresthesia, No headache, Seizure, No dizziness, Confusion, No vertigo ED Past Medical History - Past Medical History Obtainable: Yes Past Medical History: DM, Asthma/COPD, CVA/TIA, Dyslipidemia, PUD/GERD, Seizures , Dementia Family History: Diabetes Melitus, HTN Social History: Non Smoker, No Alcohol, No Drug Use, Single, Care Facility Surgical History: None Psychiatricy History: Depression, Bipolar, Dementia Medication: Reviewed Family Medical History - Family Member Mother History Unknown: Yes Ethnicity: Unknown Living Status: Unknown Hx Family Cancer: (unknown) Hx Family Coronary Artery Disease: (unknown) Hx Family Congestive Heart Failure: (unknown) Hx Family Hypertension: (unknown) Hx Family Stroke: (unknown) Hx Family Diabetes: (unknown) Hx Family Seizures: (unknown) Hx Family Dementia: (unknown) Hx Family AIDS: (unknown) Hx Family COPD: (unknown) Hx Family Hepatitis: (unknown) Hx Family Psychiatric Problems: (unknown) Hx Family Tuberculosis: (unknown) ED Physical Exam - Physical Examination General/Constitutional: Awake, Well-developed, well-nourished, Alert, No distress, GCS 15, Non-toxic appearing, Ambulatory Head: Atraumatic Eyes: Lids, conjuctiva normal, PERRL, EOMI Skin: Nl inspection, No rash, No skin lesions, No ecchymosis, Well hydrated, No lymphadenopathy ENMT: External ears, nose nl, TM canals nl, Nasal exam nl, Lips, teeth, gums nl , Oropharynx nl, Tonsils nl Neck: Nontender, Full ROM w/o pain, No JVD, No nuchal rigidity, No bruit, No mass, No stridor Other Neck comments:: supple; no meningeal signs; no cervical tenderness; no bruits Respiratory: Nl effort/Exclusion, Clear to Auscultation, No Wheeze/Rhonchi/Rales Cardio Vascular: RRR, No murmur, gallop, rubs, NL S1 S2, Carotid/Femoral/Distal pulses equal bilaterally GI: No tenderness/rebounding/guarding, No organomegaly, No hernia, Normal BS's, Nondistended, No mass/bruits, No McBurney tenderness Other GI comments:: no pulsatile masses : No CVA tenderness Extremities: No tenderness or effusion, Full ROM, normal strength in all extremities, No edema, Normal digits & nails Neuro/Psych: DTR's symmetric, Normal sensory exam, Normal motor strength, Mood normal, Normal gait, No focal deficits Other Neuro/Psych comments:: Disoriented and Confused Misc: Normal back, No paraspinal tenderness ED Labs/Radiology/EKG Results - Lab Results Comments:: Reviewed - Radiology Results Comments:: pending - EKG Interpretations Comments:: pending ED Septic Shock - . Is Septic Shock (SBP<90, OR Lactate>4 mmol\L) present?: No - <6hrs of presentation: Vital Signs: Vital Signs - 8 hr 12/14/18 19:09 Temp 97.0 F HR 70 RR 19 BP 128/78 O2 Sat % 98 ED Reassessment (Disposition) - Reassessment Reassessment Condition:: Improved - Diagnosis Diagnosis:: Hematemesis; Nausea; Vomiting; Gastritis; UGI Bleed - Aftercare/Follow up Instructions Aftercare/Follow-Up Instructions:: Counseled pt regarding lab results/diagnosis & need follow up, Counseled pt & family regarding lab results/diagnosis & need follow up - Patient Disposition Discharge/Transfer:: Acute Care w/in this hosp Accepting Physician:: Dr. Mukherjee Time Called:: 1944 Time Responded:: 19:45 Admitted to:: Telemetry Spoke to:: Dr. Mukherjee Admitting Medical Physician:: Dr. Mukherjee Condition at Disposition:: Stable, Improved
[2018-12-14] MEDS ORDERED: Sodium Chloride 0.9% 1,000 ML IV ONE (19:23)
[2018-12-14 19:40] LABS: % BASOPHILS 0.2 % (0.0-2.0); % EOSINOPHILS 3.4 % (0.0-5.0); % LYMPHOCYTES 28.5 % (20.0-50.0); % NEUTROPHILS 61.9 % (40.0-80.0); EOSINOPHILE ABSOLUTE 0.3 Th/cmm (0.1-0.4); HEMATOCRIT 41.7 % (41.0-60); HEMOGLOBIN 13.9 gm/dL (12-16); LYMPHOCYTE ABSOLUTE 2.3 Th/cmm (1.5-3.0); MEAN CELL VOLUME 90.7 fl (81-100); MEAN CORPUSCULAR HEMOGLOBIN 30.2 pg (27.0-31.0); MEAN CORPUSCULAR HGB CONC 33.3 pg (28.0-36.0); MEAN PLATELET VOLUME 6.2 fl; MONOCYTE ABSOLUTE 0.5 Th/cmm (0.3-1.0); PLATELET COUNT 331 Th/cmm (150-400); RED CELL DISTRIBUTION WIDTH 11.9 % (11.5-20.0); WHITE BLOOD COUNT 8.1 Th/cmm (4.8-10.8)
[2018-12-14 19:54] LABS: INR 0.95 (0.5-1.4); PROTHROMBIN TIME (TEST) 9.9 SECONDS (9.5-11.5)
[2018-12-14 19:59] LABS: ALB/GLOB RATIO 1.3 (1.0-1.8); ALBUMIN 4.1 gm/dL (3.7-5.3); ALKALINE PHOSPHATASE 103 U/L (34-104); AMYLASE SERUM 26 U/L (29-103); ANION GAP 9.2 (7.0-16.0); BILIRUBIN,TOTAL 0.3 mg/dL (0.3-1.0); BUN - UREA NITROGEN 8 mg/dL (7-25); CALCIUM SERUM 9.5 mg/dL (8.6-10.3); CARBON DIOXIDE 33.7 mEq/L (21.0-31.0); CHLORIDE 92 mEq/L (98-107); CHOLESTEROL 167 mg/dL (<200); CREATININE - SERUM 0.3 mg/dL (0.6-1.2); CREATININE KINASE 21 U/L (30-223); GFR AFRICAN-AMERICAN > 60.0 ml/min (>90); GFR NON AFRICAN-AMERICAN > 60.0 ml/min; GLUCOSE 134 mg/dL (70-105); HDL -HIGH DENSITY LIPOPROTEIN 39 mg/dL (23-92); LIPASE 8 U/L (11-82); POTASSIUM SERUM 3.9 mEq/L (3.5-5.1); SGOT 12 U/L (13-39); SGPT/ALT 10 U/L (7-52); SODIUM SERUM 131 mEq/L (136-145); TOTAL PROTEIN,SERUM 7.3 gm/dL (6.0-8.3); TRIGLYCERIDES 156 mg/dL (<150)
[2018-12-14] MEDS ORDERED: D5-0.9%NS 1,000 ML IV SCH (20:00)
[2018-12-14] MEDS ORDERED: GLUCAGON HCl 1 MG KIT IM PRN (21:16)
[2018-12-14 22:04] VITALS: BP 114/66
--- NOTE | 2018-12-14 22:05 | History & Physical ---
ADMIT DATE: 12/14/2018 CHIEF COMPLAINT: Vomiting blood. HISTORY OF PRESENT ILLNESS: This is a 53-year-old female with a history of diabetes, hypertension, COPD, high cholesterol, seizure, psych disorder, dementia, admitted from nursing facility secondary to vomiting blood 3 times at the nursing facility. The patient was brought in the ER and admitted for further management. The patient currently being weak and nauseous. PAST MEDICAL HISTORY: As mentioned in history of present illness. PAST SURGICAL HISTORY: Denies surgeries in the past. ALLERGIES: No known drug allergies. MEDICATIONS: The patient is on insulin sliding scale, glipizide, Tylenol, aspirin, Cogentin, Tegretol, vitamin D3, clonazepam, Colace, fish oil, Haldol, melatonin, simvastatin, sodium chloride. FAMILY HISTORY: Noncontributory. SOCIAL HISTORY: The patient is an avid smoker. No alcohol. The patient lives in the senior care. REVIEW OF SYSTEMS: GENERAL: Complains not feeling well. HEENT: No blurred vision or pain. LUNGS: No diagnosis of asthma. The patient has COPD. HEART: The patient with hypertension and diabetes. ABDOMEN: As mentioned in the history of present illness. NEUROLOGIC: No headache, visual disturbance or transient ischemic attack. PSYCHIATRIC: Stable. PHYSICAL EXAMINATION: VITAL SIGNS: Blood pressure 120/78, respirations 19, pulse 72, temperature 97.0, middle-aged female, appears chronically ill. NECK: Supple. LUNGS: Coarse breath sounds, a few rhonchi. HEART: Regular rate and rhythm without appreciable murmur. ABDOMEN: Soft, globular. EXTREMITIES: Positive excoriations limited, moving 4 extremities. LABORATORY DATA: WBC 8, hemoglobin 13, platelets 331. Sodium 131, potassium 3.9, BUN 8, creatinine 2.3, blood sugar 124. Troponin negative x 1. Amylase and lipase within normal range. Tegretol 9.5. ASSESSMENT AND PLAN: Hematemesis/upper gastrointestinal bleeding, hyponatremia, diabetes, hypertension, chronic obstructive pulmonary disease. Once the patient ____, we will refer the patient to Gastroenterology, who will perform the ultrasound and perform urinalysis. We will review the patient's chest x-ray. Continue proton pump inhibitor. We will monitor the patient in telemetry. Please see my orders. JOB# [id number]
[2018-12-15 06:25] LABS: % BASOPHILS 0.6 % (0.0-2.0); % EOSINOPHILS 4.4 % (0.0-5.0); % LYMPHOCYTES 40.8 % (20.0-50.0); % NEUTROPHILS 45.2 % (40.0-80.0); EOSINOPHILE ABSOLUTE 0.3 Th/cmm (0.1-0.4); HEMATOCRIT 42.1 % (41.0-60); LYMPHOCYTE ABSOLUTE 3.2 Th/cmm (1.5-3.0); MEAN CELL VOLUME 91.6 fl (81-100); MEAN CORPUSCULAR HEMOGLOBIN 30.5 pg (27.0-31.0); MEAN CORPUSCULAR HGB CONC 33.2 pg (28.0-36.0); MEAN PLATELET VOLUME 6.6 fl; MONOCYTE ABSOLUTE 0.7 Th/cmm (0.3-1.0); NEUTROPHILE ABSOLUTE 3.7 Th/cmm (1.8-8.0); PLATELET COUNT 318 Th/cmm (150-400); WHITE BLOOD COUNT 7.9 Th/cmm (4.8-10.8)
[2018-12-15 06:31] LABS: ANION GAP 13.3 (7.0-16.0); BUN - UREA NITROGEN 7 mg/dL (7-25); CALCIUM SERUM 8.8 mg/dL (8.6-10.3); CARBON DIOXIDE 22.9 mEq/L (21.0-31.0); CHLORIDE 96 mEq/L (98-107); CREATININE - SERUM 0.3 mg/dL (0.6-1.2); GFR AFRICAN-AMERICAN > 60.0 ml/min (>90); GFR NON AFRICAN-AMERICAN > 60.0 ml/min; GLUCOSE 121 mg/dL (70-105); POTASSIUM SERUM 4.2 mEq/L (3.5-5.1); SODIUM SERUM 128 mEq/L (136-145)
[2018-12-15] MEDS: INSULIN LISPRO SLIDING SCALE 100 UNITS/ML UNIT SUBQ SCH ×4 (06:47→20:51)
[2018-12-15] MEDS ORDERED: VTE Chemical Prophylaxis Screen/Admission MC PRN (08:29)
[2018-12-15] MEDS: Benztropine 1 MG TAB PO SCH ×2 (09:42→17:23)
[2018-12-15] MEDS: Fish Oil 1,000 MG SGL PO SCH ×3 (09:43→20:52)
[2018-12-15] MEDS ORDERED: Sodium Chloride 0.9% 1,000 ML IV SCH (14:15)
--- NOTE | 2018-12-15 14:34 | Internal Medicine Prog Note ---
Internal Medicine Subjective - Subjective Service Date: 12/15/18 Patient seen and examined:: with staff Patient is:: awake, verbal Per staff patient has:: tolerating meds Internal Medicine Objective - Results Result Diagrams: 12/15/18 05:50 12/15/18 05:50 Recent Labs: Laboratory Last Values WBC 7.9 Th/cmm (4.8-10.8) 12/15/18 05:50 RBC 4.60 Mil/cmm (3.80-5.10) 12/15/18 05:50 Hgb 14.0 gm/dL (12-16) 12/15/18 05:50 Hct 42.1 % (41.0-60) 12/15/18 05:50 MCV 91.6 fl (81-100) 12/15/18 05:50 MCH 30.5 pg (27.0-31.0) 12/15/18 05:50 MCHC Differential 33.2 pg (28.0-36.0) 12/15/18 05:50 RDW 12.0 % (11.5-20.0) 12/15/18 05:50 Plt Count 318 Th/cmm (150-400) 12/15/18 05:50 MPV 6.6 fl 12/15/18 05:50 Neutrophils % 45.2 % (40.0-80.0) 12/15/18 05:50 Lymphocytes % 40.8 % (20.0-50.0) 12/15/18 05:50 Monocytes % 9.0 % (2.0-10.0) 12/15/18 05:50 Eosinophils % 4.4 % (0.0-5.0) 12/15/18 05:50 Basophils % 0.6 % (0.0-2.0) 12/15/18 05:50 PT 9.9 SECONDS (9.5-11.5) 12/14/18 19:35 INR 0.95 (0.5-1.4) 12/14/18 19:35 Sodium 128 mEq/L (136-145) L 12/15/18 05:50 Potassium 4.2 mEq/L (3.5-5.1) 12/15/18 05:50 Chloride 96 mEq/L (98-107) L 12/15/18 05:50 Carbon Dioxide 22.9 mEq/L (21.0-31.0) 12/15/18 05:50 Anion Gap 13.3 (7.0-16.0) 12/15/18 05:50 BUN 7 mg/dL (7-25) 12/15/18 05:50 Creatinine 0.3 mg/dL (0.6-1.2) L 12/15/18 05:50 Est GFR ( Amer) > 60.0 ml/min (>90) 12/15/18 05:50 Est GFR (Non-Af Amer) > 60.0 ml/min 12/15/18 05:50 BUN/Creatinine Ratio 23.3 12/15/18 05:50 Glucose 121 mg/dL (70-105) H 12/15/18 05:50 POC Glucose 100 MG/DL (70 - 105) 12/15/18 12:00 Calcium 8.8 mg/dL (8.6-10.3) 12/15/18 05:50 Total Bilirubin 0.3 mg/dL (0.3-1.0) 12/14/18 19:35 AST 12 U/L (13-39) L 12/14/18 19:35 ALT 10 U/L (7-52) 12/14/18 19:35 Alkaline Phosphatase 103 U/L (34-104) 12/14/18 19:35 Creatine Kinase 21 U/L (30-223) L 12/14/18 19:35 Troponin I < 0.01 ng/mL (0.01-0.05) L 12/14/18 19:35 B-Natriuretic Peptide < 5.0 pg/mL (5.0-100.0) L 12/14/18 19:35 Total Protein 7.3 gm/dL (6.0-8.3) 12/14/18 19:35 Albumin 4.1 gm/dL (3.7-5.3) 12/14/18 19:35 Globulin 3.2 gm/dL 12/14/18 19:35 Albumin/Globulin Ratio 1.3 (1.0-1.8) 12/14/18 19:35 Triglycerides 156 mg/dL (<150) H 12/14/18 19:35 Cholesterol 167 mg/dL (<200) 12/14/18 19:35 LDL Cholesterol Direct 122 mg/dL (75-193) 12/14/18 19:35 HDL Cholesterol 39 mg/dL (23-92) 12/14/18 19:35 Amylase 26 U/L (29-103) L 12/14/18 19:35 Lipase 8 U/L (11-82) L 12/14/18 19:35 Serum , Qual NEGATIVE (NEGATIVE) 12/14/18 19:35 Carbamazepine 9.5 ug/ml (4.0-12.0) 12/14/18 19:35 - Physical Exam Vitals and I&O: Vital Signs Temp 97.1 F 12/15/18 12:00 Pulse 67 12/15/18 12:00 Resp 18 12/15/18 12:00 BP 112/60 12/15/18 12:00 Pulse Ox 97 12/15/18 12:00 Intake & Output 12/14/18 12/15/18 12/15/18 18:59 06:59 18:59 Weight (lbs) 125 lb Other: # Voids 2 # Bowel Movements 0 Weight Source Bedscale Active Medications: Current Medications Acetaminophen (Tylenol) 650 mg PO Q4H PRN PRN Reason: Pain Or Fever above 101 Stop: 02/12/19 21:15 Benztropine Mesylate (Cogentin) 1 mg PO BID [facility] Stop: 02/13/19 08:59 Last Admin: 12/15/18 09:42 Dose: Not Given Carbamazepine (Tegretol) 200 mg PO QID [facility]; Protocol Stop: 02/13/19 08:59 Last Admin: 12/15/18 09:42 Dose: Not Given Cholecalciferol (Vitamin D3) 1,000 iu PO DAILY [facility] Stop: 02/13/19 08:59 Last Admin: 12/15/18 09:43 Dose: Not Given Clonazepam (Klonopin) 1 mg PO TID [facility]; Protocol Stop: 02/13/19 08:59 Last Admin: 12/15/18 09:43 Dose: Not Given Docusate Sodium (Colace) 100 mg PO BID [facility] Stop: 02/13/19 08:59 Last Admin: 12/15/18 09:43 Dose: Not Given Fish Oil ([place] 3) 1,000 mg PO TID [facility] Stop: 02/13/19 08:59 Last Admin: 12/15/18 09:43 Dose: Not Given Glucagon (Glucagen) 1 mg IM PRN PRN PRN Reason: low blood sugar Stop: 02/12/19 21:15 Haloperidol (Haldol) 5 mg PO BID [facility]; Protocol Stop: 02/13/19 08:59 Last Admin: 12/15/18 09:43 Dose: Not Given Sodium Chloride (Nacl 0.9%) 1,000 mls @ 80 mls/hr IV .[id number] [facility] Stop: 02/13/19 14:14 Insulin Human Lispro (Humalog Insulin Sliding Scale) 0 units SUBQ ACHS [facility]; Protocol Stop: 02/13/19 07:29 Last Admin: 12/15/18 12:02 Dose: Not Given Miscellaneous (Melatonin [Melatonin]) 3 mg PO HS [facility] Stop: 02/13/19 20:59 Miscellaneous (Vte Chemical Prophylaxis Screen/ Admission) 1 ea [facility] PRN PRN PRN Reason: PROTOCOL Stop: 02/13/19 08:28 Ondansetron HCl (Zofran) 4 mg IV Q8H PRN PRN Reason: Nausea / Vomiting Stop: 02/12/19 21:22 Pantoprazole Sodium (Protonix) 40 mg IVP BID [facility] Stop: 02/13/19 08:59 Last Admin: 12/15/18 08:41 Dose: 40 mg Simvastatin (Zocor) 20 mg PO HS [facility]; Protocol Stop: 02/13/19 20:59 Sodium Chloride (Nacl Tab) 1 gm PO QID [facility] Stop: 02/13/19 08:59 Last Admin: 12/15/18 09:43 Dose: Not Given General: weak, alert HEENT: NC/AT, PERRLA Neck: Supple Lungs: CTAB Cardiovascular: RRR, Normal S1, Normal S2 Abdomen: soft, non-tender, non-distended, positive bowel sound Extremities: excoriation Neurological: alert - Procedures Procedures: Procedures Procedure Code Date ASPIR CURETT UTERUS NEC 69.59 05/02/11 DILATION AND CURETTAGE 26937 05/02/11 INJECT/INFUSE NEC 99.29 02/15/14 OTHER GROUP THERAPY 94.44 07/28/14 Internal Medicine Assmt/Plan - Assessment Assessment: Hematemesis gi bleed HTN copd generalized weakness - Plan Plan: aspiration precaution egd on monday monitor h/h closely am labs continue current plan of care
[2018-12-15 16:53] LABS: URINE SOURCE MIDSTREAM
[2018-12-15 16:54] LABS: URINE BILIRUBIN NEGATIVE (NEGATIVE); URINE BLOOD TRACE (NEGATIVE); URINE GLUCOSE (UA) NEGATIVE (NEGATIVE); URINE KETONE NEGATIVE (NEGATIVE); URINE LEUKOCYTE ESTERASE TRACE (NEGATIVE); URINE MICROSCOPIC INDICATED? YES; URINE NITRATE NEGATIVE (NEGATIVE); URINE PH 6.5 (4.6 - 8.0); URINE PROTEIN NEGATIVE (NEGATIVE); URINE UROBILINOGEN 0.2 E.U./dL (0.2 - 1.0)
[2018-12-15 16:57] LABS: URINE CLARITY CLOUDY (CLEAR); URINE COLOR YELLOW
[2018-12-15 17:00] LABS: URINE BACTERIA 3+ /hpf (NONE SEEN); URINE EPITHELIAL CELLS MODERATE /lpf (FEW)
[2018-12-15 17:01] LABS: URINE AMORPHOUS SEDIMENT MODERATE URATES (NONE SEEN)
[2018-12-15] MEDS ORDERED: Non-Formulary Item 1 EA (Melatonin [Melatonin] 3 MG) PO SCH (21:00)
[2018-12-16 05:25] LABS: % BASOPHILS 0.9 % (0.0-2.0); % EOSINOPHILS 3.8 % (0.0-5.0); % LYMPHOCYTES 39.9 % (20.0-50.0); % MONOCYTES 7.3 % (2.0-10.0); % NEUTROPHILS 48.1 % (40.0-80.0); BASOPHILE ABSOLUTE 0.1 Th/cumm (0-0.2); EOSINOPHILE ABSOLUTE 0.3 Th/cmm (0.1-0.4); HEMATOCRIT 40.5 % (41.0-60); HEMOGLOBIN 13.5 gm/dL (12-16); MEAN CELL VOLUME 91.7 fl (81-100); MEAN CORPUSCULAR HEMOGLOBIN 30.6 pg (27.0-31.0); MEAN CORPUSCULAR HGB CONC 33.3 pg (28.0-36.0); MEAN PLATELET VOLUME 6.8 fl; MONOCYTE ABSOLUTE 0.5 Th/cmm (0.3-1.0); NEUTROPHILE ABSOLUTE 3.5 Th/cmm (1.8-8.0); PLATELET COUNT 237 Th/cmm (150-400); RED BLOOD COUNT 4.42 Mil/cmm (3.80-5.10); RED CELL DISTRIBUTION WIDTH 11.8 % (11.5-20.0); WHITE BLOOD COUNT 7.4 Th/cmm (4.8-10.8)
[2018-12-16 05:56] LABS: ANION GAP 10.3 (7.0-16.0); BUN - UREA NITROGEN 7 mg/dL (7-25); CARBON DIOXIDE 26.5 mEq/L (21.0-31.0); CHLORIDE 98 mEq/L (98-107); CREATININE - SERUM 0.3 mg/dL (0.6-1.2); GFR AFRICAN-AMERICAN > 60.0 ml/min (>90); GFR NON AFRICAN-AMERICAN > 60.0 ml/min; GLUCOSE 122 mg/dL (70-105); POTASSIUM SERUM 3.8 mEq/L (3.5-5.1); SODIUM SERUM 131 mEq/L (136-145)
[2018-12-16] MEDS: INSULIN LISPRO SLIDING SCALE 100 UNITS/ML UNIT SUBQ SCH ×4 (06:38→22:46)
--- NOTE | 2018-12-16 07:54 | Consultation ---
DATE OF CONSULTATION: 12/14/2018 REASON FOR CONSULTATION: GI bleed. HISTORY OF PRESENT ILLNESS: This consult was obtained through the courtesy of Dr. Mukherjee for this 53-year-old with history of CVA, who had the G-tube previously that was taken out. She has also history of diabetes, hypertension, COPD, hyperlipidemia, seizure disorder, psych disorder, dementia, was admitted to the long-term for hematemesis. The patient since she came here, she is doing okay. The patient is responsive. PAST MEDICAL HISTORY: Hypertension, COPD, diabetes, hyperlipidemia, seizure, dementia, psych disorder. PAST SURGICAL HISTORY: G-tube that was taken out. SOCIAL HISTORY: Nonsmoker, nonalcoholic,non IV drug abuser. FAMILY HISTORY: Noncontributory. ALLERGIES: No known drug allergy. MEDICATIONS: Glipizide, Tylenol, Cogentin, aspirin, vitamin D, Colace, fish oil, Haldol, melatonin, simvastatin . REVIEW OF SYSTEMS: Unobtainable. PHYSICAL EXAMINATION: GENERAL: The patient is awake, oriented to self, responsive, no acute distress. VITAL SIGNS: Blood pressure 140/55, heart rate 59, respiratory rate 18, temperature is 96.8. CHEST: Good air entry. LUNGS: Clear to auscultation. CARDIOVASCULAR SYSTEM: Showed regular rate and rhythm. No murmur or gallop. ABDOMEN: Soft, positive bowel sounds. There is a scar of previous G-tube. Abdomen was not tender. LOWER EXTREMITIES: No edema. CENTRAL NERVOUS SYSTEM: Grossly nonfocal. LABORATORY DATA: Hemoglobin is 14.0. IMPRESSION: A 53-year-old with multiple medical problems, now with gastrointestinal bleed. ASSESSMENT AND PLAN: Gastrointestinal bleed, most probably gastritis, esophagitis or Dennise-Stubbs tear. We will continue with full liquid diet. We will monitor labs. If the patient vomited again blood or drop in hemoglobin, then we will do an endoscopy on Monday. On the other end if there is the active bleeding, then we will be sooner than that. If the patient has not had gastrointestinal workup, might consider an endoscopy anyway for further evaluation, but if she had an endoscopy recently, we will limit the workup for therapeutic intervention. Other medical problems such as hypertension, seizure, dementia, psych disorder, etc., as per Dr. Mukherjee. Thank you, Dr. Mukherjee for allowing me to participate in the care of the patient. If you have any further questions, please let me know. JOB# [id number] [facility]
[2018-12-16] MEDS: Benztropine 1 MG TAB PO SCH ×2 (08:28→18:28)
[2018-12-16] MEDS: Fish Oil 1,000 MG SGL PO SCH ×3 (08:28→22:06)
--- NOTE | 2018-12-16 08:39 | Internal Medicine Prog Note ---
Internal Medicine Subjective - Subjective Service Date: 12/16/18 (tolerating oral diet without any nausea) Patient is:: awake, verbal Per staff patient has:: tolerating meds Internal Medicine Objective - Results Result Diagrams: 12/16/18 05:10 12/16/18 05:10 Recent Labs: Laboratory Last Values WBC 7.4 Th/cmm (4.8-10.8) 12/16/18 05:10 RBC 4.42 Mil/cmm (3.80-5.10) 12/16/18 05:10 Hgb 13.5 gm/dL (12-16) 12/16/18 05:10 Hct 40.5 % (41.0-60) L 12/16/18 05:10 MCV 91.7 fl (81-100) 12/16/18 05:10 MCH 30.6 pg (27.0-31.0) 12/16/18 05:10 MCHC Differential 33.3 pg (28.0-36.0) 12/16/18 05:10 RDW 11.8 % (11.5-20.0) 12/16/18 05:10 Plt Count 237 Th/cmm (150-400) D 12/16/18 05:10 MPV 6.8 fl 12/16/18 05:10 Neutrophils % 48.1 % (40.0-80.0) 12/16/18 05:10 Lymphocytes % 39.9 % (20.0-50.0) 12/16/18 05:10 Monocytes % 7.3 % (2.0-10.0) 12/16/18 05:10 Eosinophils % 3.8 % (0.0-5.0) 12/16/18 05:10 Basophils % 0.9 % (0.0-2.0) 12/16/18 05:10 PT 9.9 SECONDS (9.5-11.5) 12/14/18 19:35 INR 0.95 (0.5-1.4) 12/14/18 19:35 Sodium 131 mEq/L (136-145) L 12/16/18 05:10 Potassium 3.8 mEq/L (3.5-5.1) 12/16/18 05:10 Chloride 98 mEq/L (98-107) 12/16/18 05:10 Carbon Dioxide 26.5 mEq/L (21.0-31.0) 12/16/18 05:10 Anion Gap 10.3 (7.0-16.0) 12/16/18 05:10 BUN 7 mg/dL (7-25) 12/16/18 05:10 Creatinine 0.3 mg/dL (0.6-1.2) L 12/16/18 05:10 Est GFR ( Amer) > 60.0 ml/min (>90) 12/16/18 05:10 Est GFR (Non-Af Amer) > 60.0 ml/min 12/16/18 05:10 BUN/Creatinine Ratio 23.3 12/16/18 05:10 Glucose 122 mg/dL (70-105) H 12/16/18 05:10 POC Glucose 121 MG/DL (70 - 105) H 12/15/18 16:48 Calcium 9.0 mg/dL (8.6-10.3) 12/16/18 05:10 Total Bilirubin 0.3 mg/dL (0.3-1.0) 12/14/18 19:35 AST 12 U/L (13-39) L 12/14/18 19:35 ALT 10 U/L (7-52) 12/14/18 19:35 Alkaline Phosphatase 103 U/L (34-104) 12/14/18 19:35 Creatine Kinase 21 U/L (30-223) L 12/14/18 19:35 Troponin I < 0.01 ng/mL (0.01-0.05) L 12/14/18 19:35 B-Natriuretic Peptide < 5.0 pg/mL (5.0-100.0) L 12/14/18 19:35 Total Protein 7.3 gm/dL (6.0-8.3) 12/14/18 19:35 Albumin 4.1 gm/dL (3.7-5.3) 12/14/18 19:35 Globulin 3.2 gm/dL 12/14/18 19:35 Albumin/Globulin Ratio 1.3 (1.0-1.8) 12/14/18 19:35 Triglycerides 156 mg/dL (<150) H 12/14/18 19:35 Cholesterol 167 mg/dL (<200) 12/14/18 19:35 LDL Cholesterol Direct 122 mg/dL (75-193) 12/14/18 19:35 HDL Cholesterol 39 mg/dL (23-92) 12/14/18 19:35 Amylase 26 U/L (29-103) L 12/14/18 19:35 Lipase 8 U/L (11-82) L 12/14/18 19:35 Serum , Qual NEGATIVE (NEGATIVE) 12/14/18 19:35 Urine Source MIDSTREAM 12/15/18 16:30 Urine Color YELLOW 12/15/18 16:30 Urine Clarity CLOUDY (CLEAR) H 12/15/18 16:30 Urine pH 6.5 (4.6 - 8.0) 12/15/18 16:30 Ur Specific [place] 1.015 (1.005-1.030) 12/15/18 16:30 Urine Protein NEGATIVE mg/dL (NEGATIVE) 12/15/18 16:30 Urine Glucose (UA) NEGATIVE mg/dL (NEGATIVE) 12/15/18 16:30 Urine Ketones NEGATIVE mg/dL (NEGATIVE) 12/15/18 16:30 Urine Blood TRACE (NEGATIVE) 12/15/18 16:30 Urine Nitrate NEGATIVE (NEGATIVE) 12/15/18 16:30 Urine Bilirubin NEGATIVE (NEGATIVE) 12/15/18 16:30 Urine Urobilinogen 0.2 E.U./dL (0.2 - 1.0) 12/15/18 16:30 Ur Leukocyte Esterase TRACE (NEGATIVE) H 12/15/18 16:30 Urine RBC 2-5 /hpf (0-5) 12/15/18 16:30 Urine WBC 6-10 /hpf (0-5) H 12/15/18 16:30 Ur Epithelial Cells MODERATE /lpf (FEW) 12/15/18 16:30 Amorphous Sediment MODERATE URATES (NONE SEEN) 12/15/18 16:30 Urine Bacteria 3+ /hpf (NONE SEEN) H 12/15/18 16:30 Carbamazepine 9.5 ug/ml (4.0-12.0) 12/14/18 19:35 - Physical Exam Vitals and I&O: Vital Signs Temp 96.8 F 12/16/18 08:00 Pulse 65 12/16/18 08:00 Resp 18 12/16/18 08:00 BP 122/71 12/16/18 08:00 Pulse Ox 98 12/16/18 08:00 Intake & Output 12/15/18 12/16/18 12/16/18 18:59 06:59 18:59 Intake Total 550 Balance 550 Weight (lbs) 125 lb 121 lb 4.8 oz Intake: Oral 550 Other: # Voids 2 2 # Bowel Movements 1 Weight Source Bedscale Bedscale Active Medications: Current Medications Acetaminophen (Tylenol) 650 mg PO Q4H PRN PRN Reason: Pain Or Fever above 101 Stop: 02/12/19 21:15 Benztropine Mesylate (Cogentin) 1 mg PO BID [facility] Stop: 02/13/19 08:59 Last Admin: 12/16/18 08:28 Dose: 1 mg Carbamazepine (Tegretol) 200 mg PO QID [facility]; Protocol Stop: 02/13/19 08:59 Last Admin: 12/16/18 08:30 Dose: Not Given Cholecalciferol (Vitamin D3) 1,000 iu PO DAILY [facility] Stop: 02/13/19 08:59 Last Admin: 12/16/18 08:28 Dose: 1,000 iu Clonazepam (Klonopin) 1 mg PO TID [facility]; Protocol Stop: 02/13/19 08:59 Last Admin: 12/16/18 08:28 Dose: 1 mg Docusate Sodium (Colace) 100 mg PO BID [facility] Stop: 02/13/19 08:59 Last Admin: 12/16/18 08:28 Dose: 100 mg Fish Oil ([place] 3) 1,000 mg PO TID [facility] Stop: 02/13/19 08:59 Last Admin: 12/16/18 08:28 Dose: 1,000 mg Glucagon (Glucagen) 1 mg IM PRN PRN PRN Reason: low blood sugar Stop: 02/12/19 21:15 Haloperidol (Haldol) 5 mg PO BID [facility]; Protocol Stop: 02/13/19 08:59 Last Admin: 12/16/18 08:28 Dose: 5 mg Sodium Chloride (Nacl 0.9%) 1,000 mls @ 80 mls/hr IV .[id number] [facility] Stop: 02/13/19 14:14 Last Admin: 12/15/18 14:34 Dose: 80 mls/hr Insulin Human Lispro (Humalog Insulin Sliding Scale) 0 units SUBQ ACHS [facility]; Protocol Stop: 02/13/19 07:29 Last Admin: 12/16/18 06:38 Dose: Not Given Miscellaneous (Melatonin [Melatonin]) 3 mg PO HS [facility] Stop: 02/13/19 20:59 Miscellaneous (Vte Chemical Prophylaxis Screen/ Admission) 1 ea [facility] PRN PRN PRN Reason: PROTOCOL Stop: 02/13/19 08:28 Ondansetron HCl (Zofran) 4 mg IV Q8H PRN PRN Reason: Nausea / Vomiting Stop: 02/12/19 21:22 Pantoprazole Sodium (Protonix) 40 mg IVP BID [facility] Stop: 02/13/19 08:59 Last Admin: 12/16/18 08:22 Dose: 40 mg Simvastatin (Zocor) 20 mg PO HS [facility]; Protocol Stop: 02/13/19 20:59 Last Admin: 12/15/18 20:52 Dose: 20 mg Sodium Chloride (Nacl Tab) 1 gm PO QID [facility] Stop: 02/13/19 08:59 Last Admin: 12/16/18 08:28 Dose: 1 gm General: weak, alert HEENT: NC/AT, PERRLA Neck: Supple Lungs: CTAB Cardiovascular: RRR, Normal S1, Normal S2 Abdomen: soft, non-tender, non-distended, positive bowel sound Extremities: excoriation Neurological: alert - Procedures Procedures: Procedures Procedure Code Date ASPIR CURETT UTERUS NEC 69.59 05/02/11 DILATION AND CURETTAGE 43463 05/02/11 INJECT/INFUSE NEC 99.29 02/15/14 OTHER GROUP THERAPY 94.44 07/28/14 Internal Medicine Assmt/Plan - Assessment Assessment: Hematemesis gi bleed HTN copd generalized weakness - Plan Plan: aspiration precaution egd tomorrow monitor h/h closely am labs continue current plan of care
[2018-12-16] MEDS: Levofloxacin 500mg/100mL 500 MG/100 ML BAG IV SCH (09:43)
--- NOTE | 2018-12-16 09:57 | Diagnostic Imaging Report ---
Exam: Ultrasound examination of the abdomen HISTORY: Pain Exam: None Findings: Real-time ultrasound examination abdomen performed planes study demonstrates normal echogenicity liver parenchyma. The gallbladder is not seen. Prior CT examination on 01/23/2018 demonstrates cholelithiasis. Pancreas not seen. There is no evidence of obstructive uropathy or nephrolithiasis. Right kidney measures 10.2 x 5.6 x 6.4 cm. Left kidney measures 10.1 x 5.4 x 4.7 cm. The spleen is intact. No free fluid is noted. Impression: nonvisualization of gallbladder. Prior CT examination of the abdomen on 01/23/2018 demonstrated cholelithiasis. Correlation recommended. Study is limited due to large amount of intra-abdominal bowel gas.
--- NOTE | 2018-12-16 10:23 | GI Progress Note ---
Subjective - Review of Systems Service Date: 12/16/18 Events since last encounter: No events Subjective: No complaints No N/V or bleeding Objective - Results Result Diagrams: 12/16/18 05:10 12/16/18 05:10 Recent Labs: Laboratory Last Values WBC 7.4 Th/cmm (4.8-10.8) 12/16/18 05:10 RBC 4.42 Mil/cmm (3.80-5.10) 12/16/18 05:10 Hgb 13.5 gm/dL (12-16) 12/16/18 05:10 Hct 40.5 % (41.0-60) L 12/16/18 05:10 MCV 91.7 fl (81-100) 12/16/18 05:10 MCH 30.6 pg (27.0-31.0) 12/16/18 05:10 MCHC Differential 33.3 pg (28.0-36.0) 12/16/18 05:10 RDW 11.8 % (11.5-20.0) 12/16/18 05:10 Plt Count 237 Th/cmm (150-400) D 12/16/18 05:10 MPV 6.8 fl 12/16/18 05:10 Neutrophils % 48.1 % (40.0-80.0) 12/16/18 05:10 Lymphocytes % 39.9 % (20.0-50.0) 12/16/18 05:10 Monocytes % 7.3 % (2.0-10.0) 12/16/18 05:10 Eosinophils % 3.8 % (0.0-5.0) 12/16/18 05:10 Basophils % 0.9 % (0.0-2.0) 12/16/18 05:10 PT 9.9 SECONDS (9.5-11.5) 12/14/18 19:35 INR 0.95 (0.5-1.4) 12/14/18 19:35 Sodium 131 mEq/L (136-145) L 12/16/18 05:10 Potassium 3.8 mEq/L (3.5-5.1) 12/16/18 05:10 Chloride 98 mEq/L (98-107) 12/16/18 05:10 Carbon Dioxide 26.5 mEq/L (21.0-31.0) 12/16/18 05:10 Anion Gap 10.3 (7.0-16.0) 12/16/18 05:10 BUN 7 mg/dL (7-25) 12/16/18 05:10 Creatinine 0.3 mg/dL (0.6-1.2) L 12/16/18 05:10 Est GFR ( Amer) > 60.0 ml/min (>90) 12/16/18 05:10 Est GFR (Non-Af Amer) > 60.0 ml/min 12/16/18 05:10 BUN/Creatinine Ratio 23.3 12/16/18 05:10 Glucose 122 mg/dL (70-105) H 12/16/18 05:10 POC Glucose 121 MG/DL (70 - 105) H 12/15/18 16:48 Calcium 9.0 mg/dL (8.6-10.3) 12/16/18 05:10 Total Bilirubin 0.3 mg/dL (0.3-1.0) 12/14/18 19:35 AST 12 U/L (13-39) L 12/14/18 19:35 ALT 10 U/L (7-52) 12/14/18 19:35 Alkaline Phosphatase 103 U/L (34-104) 12/14/18 19:35 Creatine Kinase 21 U/L (30-223) L 12/14/18 19:35 Troponin I < 0.01 ng/mL (0.01-0.05) L 12/14/18 19:35 B-Natriuretic Peptide < 5.0 pg/mL (5.0-100.0) L 12/14/18 19:35 Total Protein 7.3 gm/dL (6.0-8.3) 12/14/18 19:35 Albumin 4.1 gm/dL (3.7-5.3) 12/14/18 19:35 Globulin 3.2 gm/dL 12/14/18 19:35 Albumin/Globulin Ratio 1.3 (1.0-1.8) 12/14/18 19:35 Triglycerides 156 mg/dL (<150) H 12/14/18 19:35 Cholesterol 167 mg/dL (<200) 12/14/18 19:35 LDL Cholesterol Direct 122 mg/dL (75-193) 12/14/18 19:35 HDL Cholesterol 39 mg/dL (23-92) 12/14/18 19:35 Amylase 26 U/L (29-103) L 12/14/18 19:35 Lipase 8 U/L (11-82) L 12/14/18 19:35 Serum , Qual NEGATIVE (NEGATIVE) 12/14/18 19:35 Urine Source MIDSTREAM 12/15/18 16:30 Urine Color YELLOW 12/15/18 16:30 Urine Clarity CLOUDY (CLEAR) H 12/15/18 16:30 Urine pH 6.5 (4.6 - 8.0) 12/15/18 16:30 Ur Specific [place] 1.015 (1.005-1.030) 12/15/18 16:30 Urine Protein NEGATIVE mg/dL (NEGATIVE) 12/15/18 16:30 Urine Glucose (UA) NEGATIVE mg/dL (NEGATIVE) 12/15/18 16:30 Urine Ketones NEGATIVE mg/dL (NEGATIVE) 12/15/18 16:30 Urine Blood TRACE (NEGATIVE) 12/15/18 16:30 Urine Nitrate NEGATIVE (NEGATIVE) 12/15/18 16:30 Urine Bilirubin NEGATIVE (NEGATIVE) 12/15/18 16:30 Urine Urobilinogen 0.2 E.U./dL (0.2 - 1.0) 12/15/18 16:30 Ur Leukocyte Esterase TRACE (NEGATIVE) H 12/15/18 16:30 Urine RBC 2-5 /hpf (0-5) 12/15/18 16:30 Urine WBC 6-10 /hpf (0-5) H 12/15/18 16:30 Ur Epithelial Cells MODERATE /lpf (FEW) 12/15/18 16:30 Amorphous Sediment MODERATE URATES (NONE SEEN) 12/15/18 16:30 Urine Bacteria 3+ /hpf (NONE SEEN) H 12/15/18 16:30 Carbamazepine 9.5 ug/ml (4.0-12.0) 12/14/18 19:35 - Physical Exam Vitals and I&O: Vital Signs Temp 96.8 F 12/16/18 08:00 Pulse 65 12/16/18 08:00 Resp 18 12/16/18 08:00 BP 122/71 12/16/18 08:00 Pulse Ox 98 12/16/18 08:00 Intake & Output 12/15/18 12/16/18 12/16/18 18:59 06:59 18:59 Intake Total 550 Balance 550 Weight (lbs) 56.699 kg 55.021 kg Intake: Oral 550 Other: # Voids 2 2 # Bowel Movements 1 Weight Source Bedscale Bedscale Active Medications: Current Medications Acetaminophen (Tylenol) 650 mg PO Q4H PRN PRN Reason: Pain Or Fever above 101 Stop: 02/12/19 21:15 Benztropine Mesylate (Cogentin) 1 mg PO BID [facility] Stop: 02/13/19 08:59 Last Admin: 12/16/18 08:28 Dose: 1 mg Carbamazepine (Tegretol) 200 mg PO QID [facility]; Protocol Stop: 02/13/19 08:59 Last Admin: 12/16/18 09:42 Dose: 200 mg Cholecalciferol (Vitamin D3) 1,000 iu PO DAILY [facility] Stop: 02/13/19 08:59 Last Admin: 12/16/18 08:28 Dose: 1,000 iu Clonazepam (Klonopin) 1 mg PO TID [facility]; Protocol Stop: 02/13/19 08:59 Last Admin: 12/16/18 08:28 Dose: 1 mg Docusate Sodium (Colace) 100 mg PO BID [facility] Stop: 02/13/19 08:59 Last Admin: 12/16/18 08:28 Dose: 100 mg Fish Oil ([place] 3) 1,000 mg PO TID [facility] Stop: 02/13/19 08:59 Last Admin: 12/16/18 08:28 Dose: 1,000 mg Glucagon (Glucagen) 1 mg IM PRN PRN PRN Reason: low blood sugar Stop: 02/12/19 21:15 Haloperidol (Haldol) 5 mg PO BID [facility]; Protocol Stop: 02/13/19 08:59 Last Admin: 12/16/18 08:28 Dose: 5 mg Sodium Chloride (Nacl 0.9%) 1,000 mls @ 80 mls/hr IV .[id number] [facility] Stop: 02/13/19 14:14 Last Admin: 12/15/18 14:34 Dose: 80 mls/hr Levofloxacin (Levaquin Pb) 500 mg in 100 mls @ 100 mls/hr IV Q24HR [facility] Stop: 02/14/19 09:59 Last Admin: 12/16/18 09:43 Dose: 100 mls/hr Insulin Human Lispro (Humalog Insulin Sliding Scale) 0 units SUBQ ACHS [facility]; Protocol Stop: 02/13/19 07:29 Last Admin: 12/16/18 06:38 Dose: Not Given Miscellaneous (Melatonin [Melatonin]) 3 mg PO HS [facility] Stop: 02/13/19 20:59 Miscellaneous (Vte Chemical Prophylaxis Screen/ Admission) 1 ea [facility] PRN PRN PRN Reason: PROTOCOL Stop: 02/13/19 08:28 Ondansetron HCl (Zofran) 4 mg IV Q8H PRN PRN Reason: Nausea / Vomiting Stop: 02/12/19 21:22 Pantoprazole Sodium (Protonix) 40 mg IVP BID [facility] Stop: 02/13/19 08:59 Last Admin: 12/16/18 08:22 Dose: 40 mg Simvastatin (Zocor) 20 mg PO HS [facility]; Protocol Stop: 02/13/19 20:59 Last Admin: 12/15/18 20:52 Dose: 20 mg Sodium Chloride (Nacl Tab) 1 gm PO QID [facility] Stop: 02/13/19 08:59 Last Admin: 12/16/18 08:28 Dose: 1 gm General: Alert, No acute distress Neck: Supple Cardiovascular: Regular rate, Normal S1, Normal S2 Lungs: Clear to auscultation, Normal air movement Abdomen: Bowel sounds, Soft, Other (G tube), no Tender, no Mass - Procedures Procedures: Procedures Procedure Code Date ASPIR CURETT UTERUS NEC 69.59 05/02/11 DILATION AND CURETTAGE 67073 05/02/11 INJECT/INFUSE NEC 99.29 02/15/14 OTHER GROUP THERAPY 94.44 07/28/14 Assessment/Plan - Assessment Assessment: 1. GI bleeding 2. Dysphagia - Plan Plan: 1. GI bleeding H/H stable No more bleeding Must have had an EGD for the G tube No need to repeat W/U now. 2. Dysphagia Cont oral feeding and supplement with G tube if needed
[2018-12-17 05:17] LABS: % BASOPHILS 0.6 % (0.0-2.0); % EOSINOPHILS 2.8 % (0.0-5.0); % LYMPHOCYTES 35.2 % (20.0-50.0); % MONOCYTES 11.5 % (2.0-10.0); % NEUTROPHILS 49.9 % (40.0-80.0); BASOPHILE ABSOLUTE 0.1 Th/cumm (0-0.2); EOSINOPHILE ABSOLUTE 0.2 Th/cmm (0.1-0.4); HEMATOCRIT 38.2 % (41.0-60); HEMOGLOBIN 12.6 gm/dL (12-16); MEAN CELL VOLUME 91.3 fl (81-100); MEAN CORPUSCULAR HEMOGLOBIN 30.2 pg (27.0-31.0); MEAN CORPUSCULAR HGB CONC 33.1 pg (28.0-36.0); MEAN PLATELET VOLUME 6.7 fl; NEUTROPHILE ABSOLUTE 4.3 Th/cmm (1.8-8.0); PLATELET COUNT 300 Th/cmm (150-400); RED BLOOD COUNT 4.18 Mil/cmm (3.80-5.10); WHITE BLOOD COUNT 8.6 Th/cmm (4.8-10.8)
[2018-12-17 05:43] LABS: ANION GAP 10.8 (7.0-16.0); BUN - UREA NITROGEN 8 mg/dL (7-25); CALCIUM SERUM 9.1 mg/dL (8.6-10.3); CARBON DIOXIDE 28.8 mEq/L (21.0-31.0); CHLORIDE 97 mEq/L (98-107); CREATININE - SERUM 0.4 mg/dL (0.6-1.2); GFR AFRICAN-AMERICAN > 60.0 ml/min (>90); GFR NON AFRICAN-AMERICAN > 60.0 ml/min; GLUCOSE 110 mg/dL (70-105); POTASSIUM SERUM 3.6 mEq/L (3.5-5.1); SODIUM SERUM 133 mEq/L (136-145)
[2018-12-17] MEDS: INSULIN LISPRO SLIDING SCALE 100 UNITS/ML UNIT SUBQ SCH ×4 (07:14→20:11)
[2018-12-17] MEDS: Benztropine 1 MG TAB PO SCH ×2 (08:50→16:34)
[2018-12-17] MEDS: Fish Oil 1,000 MG SGL PO SCH ×3 (08:50→20:08)
[2018-12-17] MEDS: Levofloxacin 500mg/100mL 500 MG/100 ML BAG IV SCH (09:14)
--- NOTE | 2018-12-17 11:02 | GI Progress Note ---
Subjective - Review of Systems Service Date: 12/17/18 Events since last encounter: No events Subjective: No complaints No N/V or bleeding Objective - Results Result Diagrams: 12/17/18 04:45 12/17/18 04:45 Recent Labs: Laboratory Last Values WBC 8.6 Th/cmm (4.8-10.8) 12/17/18 04:45 RBC 4.18 Mil/cmm (3.80-5.10) 12/17/18 04:45 Hgb 12.6 gm/dL (12-16) 12/17/18 04:45 Hct 38.2 % (41.0-60) L 12/17/18 04:45 MCV 91.3 fl (81-100) 12/17/18 04:45 MCH 30.2 pg (27.0-31.0) 12/17/18 04:45 MCHC Differential 33.1 pg (28.0-36.0) 12/17/18 04:45 RDW 12.0 % (11.5-20.0) 12/17/18 04:45 Plt Count 300 Th/cmm (150-400) D 12/17/18 04:45 MPV 6.7 fl 12/17/18 04:45 Neutrophils % 49.9 % (40.0-80.0) 12/17/18 04:45 Lymphocytes % 35.2 % (20.0-50.0) 12/17/18 04:45 Monocytes % 11.5 % (2.0-10.0) H 12/17/18 04:45 Eosinophils % 2.8 % (0.0-5.0) 12/17/18 04:45 Basophils % 0.6 % (0.0-2.0) 12/17/18 04:45 PT 9.9 SECONDS (9.5-11.5) 12/14/18 19:35 INR 0.95 (0.5-1.4) 12/14/18 19:35 Sodium 133 mEq/L (136-145) L 12/17/18 04:45 Potassium 3.6 mEq/L (3.5-5.1) 12/17/18 04:45 Chloride 97 mEq/L (98-107) L 12/17/18 04:45 Carbon Dioxide 28.8 mEq/L (21.0-31.0) 12/17/18 04:45 Anion Gap 10.8 (7.0-16.0) 12/17/18 04:45 BUN 8 mg/dL (7-25) 12/17/18 04:45 Creatinine 0.4 mg/dL (0.6-1.2) L 12/17/18 04:45 Est GFR ( Amer) > 60.0 ml/min (>90) 12/17/18 04:45 Est GFR (Non-Af Amer) > 60.0 ml/min 12/17/18 04:45 BUN/Creatinine Ratio 20.0 12/17/18 04:45 Glucose 110 mg/dL (70-105) H 12/17/18 04:45 POC Glucose 115 MG/DL (70 - 105) H 12/16/18 22:45 Calcium 9.1 mg/dL (8.6-10.3) 12/17/18 04:45 Total Bilirubin 0.3 mg/dL (0.3-1.0) 12/14/18 19:35 AST 12 U/L (13-39) L 12/14/18 19:35 ALT 10 U/L (7-52) 12/14/18 19:35 Alkaline Phosphatase 103 U/L (34-104) 12/14/18 19:35 Creatine Kinase 21 U/L (30-223) L 12/14/18 19:35 Troponin I < 0.01 ng/mL (0.01-0.05) L 12/14/18 19:35 B-Natriuretic Peptide < 5.0 pg/mL (5.0-100.0) L 12/14/18 19:35 Total Protein 7.3 gm/dL (6.0-8.3) 12/14/18 19:35 Albumin 4.1 gm/dL (3.7-5.3) 12/14/18 19:35 Globulin 3.2 gm/dL 12/14/18 19:35 Albumin/Globulin Ratio 1.3 (1.0-1.8) 12/14/18 19:35 Triglycerides 156 mg/dL (<150) H 12/14/18 19:35 Cholesterol 167 mg/dL (<200) 12/14/18 19:35 LDL Cholesterol Direct 122 mg/dL (75-193) 12/14/18 19:35 HDL Cholesterol 39 mg/dL (23-92) 12/14/18 19:35 Amylase 26 U/L (29-103) L 12/14/18 19:35 Lipase 8 U/L (11-82) L 12/14/18 19:35 Serum , Qual NEGATIVE (NEGATIVE) 12/14/18 19:35 Urine Source MIDSTREAM 12/15/18 16:30 Urine Color YELLOW 12/15/18 16:30 Urine Clarity CLOUDY (CLEAR) H 12/15/18 16:30 Urine pH 6.5 (4.6 - 8.0) 12/15/18 16:30 Ur Specific [place] 1.015 (1.005-1.030) 12/15/18 16:30 Urine Protein NEGATIVE mg/dL (NEGATIVE) 12/15/18 16:30 Urine Glucose (UA) NEGATIVE mg/dL (NEGATIVE) 12/15/18 16:30 Urine Ketones NEGATIVE mg/dL (NEGATIVE) 12/15/18 16:30 Urine Blood TRACE (NEGATIVE) 12/15/18 16:30 Urine Nitrate NEGATIVE (NEGATIVE) 12/15/18 16:30 Urine Bilirubin NEGATIVE (NEGATIVE) 12/15/18 16:30 Urine Urobilinogen 0.2 E.U./dL (0.2 - 1.0) 12/15/18 16:30 Ur Leukocyte Esterase TRACE (NEGATIVE) H 12/15/18 16:30 Urine RBC 2-5 /hpf (0-5) 12/15/18 16:30 Urine WBC 6-10 /hpf (0-5) H 12/15/18 16:30 Ur Epithelial Cells MODERATE /lpf (FEW) 12/15/18 16:30 Amorphous Sediment MODERATE URATES (NONE SEEN) 12/15/18 16:30 Urine Bacteria 3+ /hpf (NONE SEEN) H 12/15/18 16:30 Carbamazepine 9.5 ug/ml (4.0-12.0) 12/14/18 19:35 - Physical Exam Vitals and I&O: Vital Signs Temp 97.0 F 12/17/18 08:00 Pulse 68 12/17/18 08:00 Resp 18 12/17/18 08:00 BP 117/65 12/17/18 08:00 Pulse Ox 97 12/17/18 08:00 Intake & Output 12/16/18 12/17/18 12/17/18 18:59 06:59 18:59 Intake Total 500 Output Total 2 Balance 500 -2 Weight (lbs) 54.885 kg 61.28 kg Intake: Intake, IV Amount 100 Levofloxacin 500mg/100mL 100 500 mg In 100 ml @ 100 mls/hr IV Q24HR [facility] Rx#: [id number] Oral 400 Output: Urine 2 Other: # Voids 4 # Bowel Movements 1 0 Weight Source Bedscale Bedscale Active Medications: Current Medications Acetaminophen (Tylenol) 650 mg PO Q4H PRN PRN Reason: Pain Or Fever above 101 Stop: 02/12/19 21:15 Benztropine Mesylate (Cogentin) 1 mg PO BID [facility] Stop: 02/13/19 08:59 Last Admin: 12/17/18 08:50 Dose: 1 mg Carbamazepine (Tegretol) 200 mg PO QID [facility]; Protocol Stop: 02/13/19 08:59 Last Admin: 12/17/18 08:50 Dose: 200 mg Cholecalciferol (Vitamin D3) 1,000 iu PO DAILY [facility] Stop: 02/13/19 08:59 Last Admin: 12/17/18 08:50 Dose: 1,000 iu Clonazepam (Klonopin) 1 mg PO TID [facility]; Protocol Stop: 02/13/19 08:59 Last Admin: 12/17/18 08:50 Dose: 1 mg Docusate Sodium (Colace) 100 mg PO BID [facility] Stop: 02/13/19 08:59 Last Admin: 12/17/18 08:50 Dose: 100 mg Fish Oil ([place] 3) 1,000 mg PO TID [facility] Stop: 02/13/19 08:59 Last Admin: 12/17/18 08:50 Dose: 1,000 mg Glucagon (Glucagen) 1 mg IM PRN PRN PRN Reason: low blood sugar Stop: 02/12/19 21:15 Haloperidol (Haldol) 5 mg PO BID [facility]; Protocol Stop: 02/13/19 08:59 Last Admin: 12/17/18 08:50 Dose: 5 mg Sodium Chloride (Nacl 0.9%) 1,000 mls @ 80 mls/hr IV .[id number] [facility] Stop: 02/13/19 14:14 Last Admin: 05/11/19 14:34 Dose: 80 mls/hr Levofloxacin (Levaquin Pb) 500 mg in 100 mls @ 100 mls/hr IV Q24HR [facility] Stop: 02/14/19 09:59 Last Admin: 12/17/18 09:14 Dose: 100 mls/hr Insulin Human Lispro (Humalog Insulin Sliding Scale) 0 units SUBQ ACHS [facility]; Protocol Stop: 02/13/19 07:29 Last Admin: 12/17/18 07:14 Dose: Not Given Miscellaneous (Melatonin [Melatonin]) 3 mg PO [facility] Stop: 02/13/19 20:59 Miscellaneous (Vte Chemical Prophylaxis Screen/ Admission) 1 ea [facility] PRN PRN PRN Reason: PROTOCOL Stop: 02/13/19 08:28 Ondansetron HCl (Zofran) 4 mg IV Q8H PRN PRN Reason: Nausea / Vomiting Stop: 02/12/19 21:22 Pantoprazole Sodium (Protonix) 40 mg IVP BID [facility] Stop: 02/13/19 08:59 Last Admin: 12/17/18 08:49 Dose: 40 mg Simvastatin (Zocor) 20 mg PO [facility]; Protocol Stop: 02/13/19 20:59 Last Admin: 12/16/18 22:06 Dose: 20 mg Sodium Chloride (Nacl Tab) 1 gm PO QID [facility] Stop: 02/13/19 08:59 Last Admin: 12/17/18 08:50 Dose: 1 gm General: Alert, No acute distress Neck: Supple Cardiovascular: Regular rate, Normal S1, Normal S2 Lungs: Clear to auscultation, Normal air movement Abdomen: Bowel sounds, Soft, Other (G tube), no Tender, no Mass - Procedures Procedures: Procedures Procedure Code Date ASPIR CURETT UTERUS NEC 69.59 05/02/11 DILATION AND CURETTAGE 53815 05/02/11 INJECT/INFUSE NEC 99.29 02/15/14 OTHER GROUP THERAPY 94.44 07/28/14 Assessment/Plan - Assessment Assessment: 1. GI bleeding 2. Dysphagia - Plan Plan: 1. GI bleeding H/H stable No more bleeding Must have had an EGD for the G tube No need to repeat W/U now. 2. Dysphagia Cont oral feeding and supplement with G tube if needed
[2018-12-17] MEDS ORDERED: Pantoprazole 40 mg EC Tab PO SCH (17:00)
--- NOTE | 2018-12-17 19:11 | Discharge Summary ---
DATE OF DISCHARGE: 12/17/2018 CHIEF COMPLAINT: Vomiting blood. FINAL DIAGNOSIS: Episode of hematemesis/GI bleeding, which is improved, electrolyte abnormalities, diabetes, hypertension, chronic obstructive pulmonary disease, and psych disorder. HISTORY: This is a 53-year-old female with history of diabetes, hypertension, COPD, seizure, psych disorder, dementia, admitted from nursing facility after vomiting blood x 3. The patient admitted for further management. Denies abdominal pain. PHYSICAL EXAMINATION: VITAL SIGNS: Blood pressure 111/67, respirations 18, pulse 68, temperature 97.6. GENERAL: Elderly female, appears her stated age. NECK: Supple. No mass. LUNGS: Equal breath sounds, few rhonchi. HEART: Regular rate and rhythm without appreciable murmur. ABDOMEN: Soft, globular. EXTREMITIES: Positive excoriations. NEUROLOGIC: Limited. HOSPITAL COURSE: The patient was admitted to telemetry. Continue oxygen and bronchodilator treatment. Hemoglobin has remained stable. No evidence of vomiting. The patient was referred to Dr. Duke for GI, no intervention is needed at this time. The patient was placed on intravenous proton pump inhibitor. CONDITION ON DISCHARGE: Fair. DISCHARGE INSTRUCTIONS: The patient to continue pump inhibitor and a close followup with GI upon discharge. JOB# [id number]
== END 2018-12-17 20:10 | DRG 378 ==
LOC: ER 18:50 → TELE 20:01
PROVIDERS: ADMIT Internal Medicine; ATTEND Internal Medicine
DX: K29.71 Gastritis, unspecified, with bleeding (principal); E87.1 Hypo-osmolality and hyponatremia; N39.0 Urinary tract infection, site not specified; I10 Essential (primary) hypertension; J44.9 Chronic obstructive pulmonary disease, unspecified; E11.9 Type 2 diabetes mellitus without complications; E78.5 Hyperlipidemia, unspecified; R56.9 Unspecified convulsions; F03.90 Unspecified dementia, unspecified severity, without behavioral disturbance, psychotic disturbance, mood disturbance, and anxiety; R13.10 Dysphagia, unspecified; Z93.1 Gastrostomy status; Z79.84 Long term (current) use of oral hypoglycemic drugs; Z86.73 Personal history of transient ischemic attack (TIA), and cerebral infarction without residual deficits
CPT/HCPCS: 36415-UA; 76700-TC; 80048-TC; 80053-TC; 80061-TC; 80156-TC; 81001-TC; 82150-TC; 82550-TC; 82948-90; 83690-TC; 83880-TC; 84484-TC; 84703-TC; 85025-TC; 85610-TC; 87086-90; 93005; 94760; 96374; 96375; C9113; J1956; J2405; J7030; J7042; Z7610